=== PATIENT | male | born 1950 | race Caucasian/White ===

== ENCOUNTER 2017-06-01 22:26 | Inpatient (IN) | payer OTHER ==
[~2017-06-01] VITALS: Ht 180.3 cm; Wt 58.1 kg
--- NOTE | 2017-06-01 22:26 | NUR ---
PATIENT BIB BLS TO ER BED 11.
--- NOTE | 2017-06-01 22:28 | NUR ---
PATIENT IS A 66 Y/O MALE WHO PRESENTS TO THE ED C/O FEVER. PER [facility], "PT HAD FEVER AND WAS GIVEN NORCO." PT REPORTS 9/10 ACHING CHEST PAIN THAT DOES NOT RADIATE. PT DENIES N/V/D. NOTED G-TUBE. PT WARM TO TOUCH AND DIAPHORETIC. PT AAOX2, RR EVEN/UNLABORED, LUNG SOUNDS CLEAR BL. PT REPOSITIONED FOR COMFORT, BED IN LOWEST POSITION. ER MD DR. DEVLIN NOTIFIED. WILL CONTINUE TO MONITOR.
[2017-06-01 22:31] VITALS: BP 87/51
[2017-06-01] MEDS ORDERED: ACET-2858 PO (22:42)
[2017-06-01] MEDS ORDERED: METO-485 PO (22:42)
[2017-06-01] MEDS ORDERED: FAMO-90 PO (22:42)
[2017-06-01] MEDS ORDERED: OLAN15TA1 PO (22:42)
[2017-06-01] MEDS ORDERED: MEMA5TAB PO (22:42)
[2017-06-01] MEDS ORDERED: ASCO-770 PO (22:42)
[2017-06-01] MEDS ORDERED: INSU100S5 IJ (22:42)
[2017-06-01] MEDS ORDERED: NUTR-480 PO (22:42)
[2017-06-01] MEDS ORDERED: GABA100C PO (22:42)
[2017-06-01] MEDS ORDERED: ACETAMINOPHEN 650 MG SUPP RC ONE ×2 (22:49→23:05)
[2017-06-01] MEDS ORDERED: NACL 0.9% 1,000 ML IV ONE (23:00)
--- NOTE | 2017-06-01 23:20 | NUR ---
X-Ray at bedside.
[2017-06-01 23:47] LABS: HEMATOCRIT 31.9 % (36-52); HEMOGLOBIN 10.5 g/dL (12.0-18.0); MEAN CORPUSCULAR HEMOGLOBIN 29 pg (27-31); MEAN CORPUSCULAR HGB CONC 33 g/dL (33-37); MEAN CORPUSCULAR VOLUME 90 fL (80-94); PLATELET COUNT (AUTO) 363 K/uL (140-450); RED BLOOD CELL COUNT(AUTO) 3.56 MIL/uL (4.20-6.10)
[2017-06-01 23:57] LABS: APPEARANCE,URINE CLOUDY (CLEAR); BILIRUBIN,URINE NEGATIVE (NEGATIVE); BLOOD, URINE NEGATIVE (NEGATIVE); COLOR,URINE YELLOW (YELLOW); LEUKOCYTE ESTERASE ,URINE NEGATIVE (NEGATIVE); NITRITE, URINE NEGATIVE (NEGATIVE); UGLUCOSE NEGATIVE (NEGATIVE)
[2017-06-02] VITALS (9 sets, daily range): BP systolic 89–132; BP diastolic 47–75
--- NOTE | 2017-06-02 | NUR ---
PATIENT IS RESTING AT THIS TIME.
[2017-06-02 00:01] LABS: ALBUMIN 2.6 g/dL (3.4-5.0); ANION GAP 14.8 (8-16); CARBON DIOXIDE 29.1 mmol/L (21-32); CREATININE 1.1 mg/dL (0.7-1.3); POTASSIUM 3.9 mmol/L (3.5-5.1); TOTAL BILIRUBIN 0.2 mg/dL (0.0-1.0)
[2017-06-02 00:02] LABS: WHITE BLOOD COUNT (AUTO) 20.2 K/uL (4.8-10.8)
[2017-06-02 00:03] LABS: EOSINOPHILS % (MANUAL) 1 % (0-4); LYMPHOCYTES % (MANUAL) 0 % (20-46); MONOCYTES % (MANUAL) 3 % (5-12)
[2017-06-02] MEDS ORDERED: VANCOMYCIN 1,000 MG in DEXTROSE 5% 250 ML IV ONE (00:10)
[2017-06-02] MEDS ORDERED: PIPERACILLIN/TAZOBACTAM 3.375 GM in DEXTROSE 5% 50 ML IV ONE (00:10)
[2017-06-02] MEDS ORDERED: NACL 0.9% 1,000 ML IV ONE ×3 (00:10→02:20)
[2017-06-02] MEDS ORDERED: PIPERACILLIN/TAZOBACTAM 3.375 GM VIAL IV ONE ×2 (00:13→04:28)
[2017-06-02 00:17] LABS: PROTHROMBIN TIME 12.1 secs (10.8-13.4)
[2017-06-02 00:36] LABS: RBC,URINE 0-5 (RARE) /HPF (0-5); WBC,URINE 0-5 (RARE) /HPF (0-5)
[2017-06-02] MEDS ORDERED: VANCOMYCIN 1,000 MG VIAL ONE (01:29)
[2017-06-02] MEDS ORDERED: LEVOFLOXACIN 750 MG/D5W PREMIX 150 ML IV ONE (01:40)
[2017-06-02] MEDS ORDERED: NOREPINEPHRINE 4 MG in DEXTROSE 5% 250 ML IV ONE (02:30)
[2017-06-02] MEDS ORDERED: NOREPINEPHRINE 4 MG/4 ML VIAL IV ONE (02:33)
--- NOTE | 2017-06-02 02:45 | NUR ---
STARTED LEVOPHED 4MG/250 AT 5MCG. PER ER MD DR. DEVLIN, TITRATE UP UNTIL MAP GREATER THAN 65, THEN D/C.
[2017-06-02] MEDS ORDERED: VANCOMYCIN PER PHARMACY MC PRN (03:25)
[2017-06-02] MEDS ORDERED: NOREPINEPHRINE 8 MG in DEXTROSE 5% 250 ML IV PRN (03:25)
--- NOTE | 2017-06-02 03:30 | NUR ---
MAP AT 79. ER MD DR. DEVLIN MADE AWARE, OK TO D/C LEVOPHED.
--- NOTE | 2017-06-02 03:31 | NUR ---
Patient will be admitted to care of DR. MAY. Admited to ICU-3. Will go to room 3. Belongings list completed. Report to LUIS ANGEL FRAUSTO.
--- NOTE | 2017-06-02 03:35 | NUR ---
received pt from er via [facility].monitor attached.pt alert and oriented.st on monitor.on 02nc at 2LPM.no sob noted.oral care done.secretions suctioned.diminished breath sounds noted.with gtube clamped.flushed.pt verbalized able to void freely using urinal.pt able to move all extremities.skin intact.denies pain when asked.call light within reach.bed in low position.
[2017-06-02] MEDS: NACL 0.9% 1,000 ML IV SCH ×4 (03:51→15:53)
--- NOTE | 2017-06-02 05:01 | NUR ---
pt asleep at this time.easily arousable.still st on monitor.02sat 99% on 02nc at 2lpm.
--- NOTE | 2017-06-02 05:30 | NUR ---
BS CHECKED 91.
[2017-06-02] MEDS: PIPER/TAZO 3.375GM/D5W PREMIX 50 ML IV SCH ×3 (05:37→20:30)
[2017-06-02] MEDS: ALBUTEROL SULFATE/IPRATROPIU 3 ML SOL IH SCH ×5 (06:43→23:02)
[2017-06-02 06:51] LABS: HEMATOCRIT 31.1 % (36-52); HEMOGLOBIN 9.9 g/dL (12.0-18.0); MEAN CORPUSCULAR HEMOGLOBIN 29 pg (27-31); MEAN CORPUSCULAR HGB CONC 32 g/dL (33-37); MEAN CORPUSCULAR VOLUME 91 fL (80-94); PLATELET COUNT (AUTO) 361 K/uL (140-450); RED BLOOD CELL COUNT(AUTO) 3.42 MIL/uL (4.20-6.10); RED CELL DISTRIBUTION WIDTH 16.3 % (11.6-13.7); WHITE BLOOD COUNT (AUTO) 26.6 K/uL (4.8-10.8)
[2017-06-02 07:11] LABS: CARBON DIOXIDE 25.9 mmol/L (21-32); CREATININE 0.9 mg/dL (0.7-1.3); POTASSIUM 3.9 mmol/L (3.5-5.1)
--- NOTE | 2017-06-02 07:30 | NUR ---
RECEIVED REPORT FROM NOC SHIFT RN. PT RESTING IN BED, A/O X4. ABLE TO MAKE NEEDS KNOWN. PUPILS REACTIVE TO LIGHT. SKIN DRY AND WARM TO TOUCH. ON O2 AT 2 LTR/MIN VIA N/C. SPO2 94 %SR ON MONITOR. LUNGS SOUND DIMINISHED ON AUSCULTATION. PERIPHERAL LINE ON RIGHT HAND 22 G AND LEFT WRIST 20 G. INTACT. NS RUNNING AT 100 ML/HR. ABDOMEN SOFT, ROUND AND NON-TENDER. ACTIVE BOWEL SOUND ON ALL FOUR QUADRANTS. GTUBE ON LUQ. SKIN INTACT. PT AFEBRILE. KEPT HOB ELEVATED. BED IN LOW POSITION, LOCKED.
--- NOTE | 2017-06-02 07:57 | NUR ---
PT SLEEPING IN BED AT THIS TIME.
[2017-06-02 08:01] LABS: LYMPHOCYTES % (MANUAL) 3 % (20-46); MONOCYTES % (MANUAL) 5 % (5-12)
[2017-06-02] MEDS: PANTOPRAZOLE 40 MG INJ VIAL IVP SCH (08:53)
[2017-06-02] MEDS: ENOXAPARIN 40 MG/0.4 ML SYR SUBQ SCH (08:56)
--- NOTE | 2017-06-02 09:01 | NUR ---
PAGED DR. MAY TO UPDATE LAB RESULTS AND PT CONDITION. WAITING FOR CALL BACK.
--- NOTE | 2017-06-02 09:18 | NUR ---
PATIENT HAS BEEN SCREENED AND CATEGORIZED HIGH NUTRITION RISK. PATIENT WILL BE SEEN WITHIN 1-2 DAYS OF ADMISSION. 06/02/17-06/03/[address]
[2017-06-02] MEDS ORDERED: INSULIN LISPRO SLIDING SCALE 100 UNITS/ML VIAL SUBQ PRN (09:30)
[2017-06-02] MEDS ORDERED: DEXTROSE 50% 50 ML SYR IVP PRN (09:30)
--- NOTE | 2017-06-02 09:42 | NUR ---
PT SEEN BY DR. MAY. UPDATED PT CONDITION AND LABS. WILL FOLLOW UP ON ORDER.
--- NOTE | 2017-06-02 09:47 | NUR ---
PT SLEEPING AT THIS TIME. NO RESPIRATORY DISTRESS. NO CHANGE IN LOC. ST ON MONITOR. BP 93/54. AFEBRILE. WILL CONTINUE TO MONITOR.
[2017-06-02] MEDS: HYDROcodone/APAP 5/325 MG 1 TAB TAB PO PRN ×2 (10:50→20:30)
--- NOTE | 2017-06-02 11:04 | NUR ---
PAGED DR. HURLEY FOR CONSULTATION FOR SEPSIS WAITING FOR CALL BACK.
--- NOTE | 2017-06-02 11:30 | NUR ---
PT BP DROPPED DOWN TO 76/43. CALLED DR. MAY. LEFT VOICE MESSAGE. WAITING FOR CALL BACK.
--- NOTE | 2017-06-02 11:33 | NUR ---
BODY TEMPERATURE INCREASED TO 100.2 DEGREE F. EXTRA CLOTHES REMOVED. APPLIED ICE PACKS TO AXILLA. COLD COMPRESS DONE. CONTINUE TO MONITOR.
[2017-06-02] MEDS: BLOOD GLUCOSE MONITORING 1 DEV DEV FS SCH ×3 (11:59→20:41)
--- NOTE | 2017-06-02 12:02 | NUR ---
BODY TEMPERATURE REDUCED TO 98.4 DEGREE F.
--- NOTE | 2017-06-02 12:05 | NUR ---
BP 102/51. PT ON CONTINUOUS MONITORING.
[2017-06-02] MEDS: METOCLOPRAMIDE 10 MG/10 ML SYRP UDC PO SCH ×3 (12:21→20:29)
[2017-06-02] MEDS: GABAPENTIN 100 MG CAP PO SCH ×2 (12:21→17:28)
--- NOTE | 2017-06-02 13:00 | NUR ---
PAGED DR. MAY. AWAITING FOR CALL BACK.
--- NOTE | 2017-06-02 13:08 | NUR ---
CALLED DR. HURLEY. UPDATED PT CONDITION. WILL FOLLOW UP ON ORDER.
--- NOTE | 2017-06-02 13:45 | NUR ---
PT SEEN BY DR. LONGO. NOTIFIED PT FLUCTUATING BP AND FEVER. UPDATED PT CONDITION. WILL FOLLOW UP ON ORDER.
[2017-06-02] MEDS ORDERED: ACETAMINOPHEN 325 MG TAB PO PRN (13:50)
[2017-06-02] MEDS ORDERED: NACL 0.9% 2,000 ML IV SCH (13:55)
[2017-06-02] MEDS: VANCOMYCIN 500 MG in DEXTROSE 5% 100 ML IV SCH (14:08)
--- NOTE | 2017-06-02 15:01 | NUR ---
FAXED INITIAL REVIEW TO [facility] [phone] PHONE ZEB [phone]
--- NOTE | 2017-06-02 15:39 | NUR ---
PT SLEEPING IN BED AT THIS TIME. NO ACUTE RESPIRATORY DISTRESS NOTED. NO CHANGE IN LOC. WILL CONTINUE TO MONITOR.
[2017-06-02 15:57] LABS: HEMATOCRIT 31.2 % (36-52); MEAN CORPUSCULAR HEMOGLOBIN 29 pg (27-31); MEAN CORPUSCULAR HGB CONC 32 g/dL (33-37); MEAN CORPUSCULAR VOLUME 91 fL (80-94); PLATELET COUNT (AUTO) 308 K/uL (140-450); RED BLOOD CELL COUNT(AUTO) 3.43 MIL/uL (4.20-6.10); RED CELL DISTRIBUTION WIDTH 16.5 % (11.6-13.7); WHITE BLOOD COUNT (AUTO) 22.3 K/uL (4.8-10.8)
--- NOTE | 2017-06-02 16:15 | NUR ---
PAGED DR. MAY, AWAITING FOR CALL BACK.
--- NOTE | 2017-06-02 16:18 | NUR ---
RECEIVED CALL FROM DR. MAY. UPDATED PTS LAB RESULTS AND PT CONDITION. OKAY TO TRANSFER PT TO TELE.
--- NOTE | 2017-06-02 17:13 | NUR ---
PT SLEEPING IN BED AT THIS TIME. NO RESPIRATORY DISTRESS NOTED. NO CHANGE IN LOC. HR 101, BP 103/57, RR 15 SPO2 97. WILL CONTINUE TO MONITOR.
--- NOTE | 2017-06-02 17:40 | NUR ---
AT 1720. CHECKED RESIDUAL, WAS 110. HELD GTUBE FEEDING. KEPT HOB ELEVATED.
--- NOTE | 2017-06-02 18:05 | NUR ---
PT TRANSFERRED TO TELE UNIT 104B SAFELY WITH ALL THE BELONGINGS AND EYE GLASSES. PT ON STABLE CONDITION. REPORT GIVEN TO TELE NURSE.
--- NOTE | 2017-06-02 18:40 | NUR ---
PT ADMITTED TO [facility]. BEDSIDE REPORT GIVEN BY ICU NURSE. PT IS AWAKE AND ORIENTED X4. TELE MONITOR APPLIED. IV TO L AC 20G INTACT WITH NS @100ML/HR. G-TUBE PLACEMENT. ON O2 NC 2L/MIN. O2 SAT 98%. PT WITH PRODUCTIVE COUGH. SKIN INTACT. PT VOIDED USING URINAL. VS: BP 121/69, HR 109, RR 20, TEMP 98.7, O2 SAT 98%. NO SIGNS OF DISTRESS. BED IN LOW POSITION, WHEELS LOCKED, CALL LIGHT WITHIN REACH. WILL CONTINUE TO MONITOR.
[2017-06-02 19:02] LABS: LYMPHOCYTES % (MANUAL) 6 % (20-46); MONOCYTES % (MANUAL) 3 % (5-12)
--- NOTE | 2017-06-02 19:35 | NUR ---
ENDORSED PT TO CHILD GUIDANCE COUNSELOR NURSE YAYO AT BEDSIDE FOR CONTINUITY OF CARE. PT IN STABLE CONDITION.
--- NOTE | 2017-06-02 19:36 | NUR ---
RECEIVED REPORT FROM DAY SHIFT RN, PT IS A/OX4, ON 2L O2 VIA NASAL CANNULA. 20G IV TO LEFT HAND. IS ON BEDREST, WITH INTACT SKIN. PT HAS GTUBE IN PLACE. UPDATED BOARD. VITAL SIGNS WITHIN NORMAL LIMITS. PT IN STABLE CONDITION, NO SIGNS OF DISTRESS NOTED. BED IN LOWEST POSITION, CALL LIGHT WITHIN REACH. WILL CONTINUE TO MONITOR.
[2017-06-02] MEDS: OLANZapine 5 MG TAB PO SCH (20:29)
[2017-06-02] MEDS: LEVOFLOXACIN 750 MG/D5W PREMIX 150 ML IV SCH (20:30)
--- NOTE | 2017-06-02 20:40 | NUR ---
CHECKED G TUBE FOR RESIDUAL, NONE WAS PULLED. ADMINISTERED SCHEDULED MEDICATIONS AND NORCO FOR 9/10 PAIN AND FLUSHED G TUBE WITH ABOUT 40MLS OF WATER, PT TOLERATED WELL. PT IN STABLE CONDITION, NO SIGNS OF DISTRESS NOTED. BED IN LOWEST POSITION, CALL LIGHT WITHIN REACH. WILL CONTINUE TO MONITOR.
[2017-06-02] MEDS ORDERED: FAMOTIDINE 20 MG TAB PO SCH (21:00)
--- NOTE | 2017-06-02 21:45 | NUR ---
NO RESIDUAL FROM G TUBE. STARTED BOLUS FEEDING, PT TOLERATING WELL.
[2017-06-03] VITALS: BP 103/49
--- NOTE | 2017-06-03 00:30 | NUR ---
VITAL SIGNS WITHIN NORMAL LIMITS. PT IN STABLE CONDITION, NO SIGNS OF DISTRESS NOTED. BED IN LOWEST POSITION, CALL LIGHT WITHIN REACH. WILL CONTINUE TO MONITOR.
[2017-06-03] MEDS: VANCOMYCIN 500 MG in DEXTROSE 5% 100 ML IV SCH (01:29)
--- NOTE | 2017-06-03 01:55 | NUR ---
NO RESIDUAL FROM G TUBE. STARTED BOLUS FEEDING, PT TOLERATING WELL.
[2017-06-03] MEDS: HYDROcodone/APAP 5/325 MG 1 TAB TAB PO PRN ×4 (02:41→20:34)
--- NOTE | 2017-06-03 02:45 | NUR ---
ADMINISTERED NORCO FOR 9/10 PAIN, PT TOLERATED WELL. PT IN STABLE CONDITION, NO SIGNS OF DISTRESS NOTED. BED IN LOWEST POSITION, CALL LIGHT WITHIN REACH. WILL CONTINUE TO MONITOR.
[2017-06-03] MEDS: ALBUTEROL SULFATE/IPRATROPIU 3 ML SOL IH SCH ×4 (03:20→19:23)
[2017-06-03 04:00] VITALS: BP 97/52
--- NOTE | 2017-06-03 04:00 | NUR ---
VITAL SIGNS WITHIN NORMAL LIMITS. PT IN STABLE CONDITION, NO SIGNS OF DISTRESS NOTED. BED IN LOWEST POSITION, CALL LIGHT WITHIN REACH. WILL CONTINUE TO MONITOR.
[2017-06-03] MEDS: PIPER/TAZO 3.375GM/D5W PREMIX 50 ML IV SCH ×3 (05:41→20:42)
--- NOTE | 2017-06-03 06:00 | NUR ---
NO RESIDUAL FROM G TUBE. STARTED BOLUS FEEDING, PT TOLERATING WELL.
[2017-06-03] MEDS: BLOOD GLUCOSE MONITORING 1 DEV DEV FS SCH ×4 (06:35→20:46)
[2017-06-03 06:41] LABS: HEMATOCRIT 26.6 % (36-52); HEMOGLOBIN 8.4 g/dL (12.0-18.0); MEAN CORPUSCULAR HEMOGLOBIN 28 pg (27-31); MEAN CORPUSCULAR HGB CONC 31 g/dL (33-37); MEAN CORPUSCULAR VOLUME 90 fL (80-94); PLATELET COUNT (AUTO) 297 K/uL (140-450); RED BLOOD CELL COUNT(AUTO) 2.96 MIL/uL (4.20-6.10); RED CELL DISTRIBUTION WIDTH 16.2 % (11.6-13.7); WHITE BLOOD COUNT (AUTO) 17.2 K/uL (4.8-10.8)
[2017-06-03 07:08] LABS: ANION GAP 10.9 (8-16); CARBON DIOXIDE 25.4 mmol/L (21-32); CREATININE 0.7 mg/dL (0.7-1.3); POTASSIUM 3.3 mmol/L (3.5-5.1)
--- NOTE | 2017-06-03 07:30 | NUR ---
RECEIVED REPORT FROM AM NURSE AT BEDSIDE, PT IS AAOX4, ABLE TO FOLLOW COMMANDS AND MAKE NEEDS KNOW, C/O PAIN TO ABDOMEN, WILL MEDICATED LATER, VSS. NO S/S OF DISTRESS, CLEAR LUNG SOUNDS, ON RA, ST ON TELE MONITOR, SOFT ABDOMEN WITH ACTIVE BOWEL SOUNDS, GT IN PLACE, PATENT, WITH 0 RESIDUALS, CONTINENT WITH B&B'S, SKIN IS INTACT, WARM AND DRY TO TOUCH, GENERALIZED WEAKNESS NOTED. SAFETY MEASURES IN PLACE, CALL LIGHT WITHIN REACH. WILL CONTINUE TO MONITOR.
--- NOTE | 2017-06-03 07:32 | NUR ---
ENDORSED PT IN STABLE CONDITION TO DAY SHIFT NURSE FOR CONTINUITY OF CARE.
[2017-06-03 07:51] LABS: LYMPHOCYTES % (MANUAL) 2 % (20-46); MONOCYTES % (MANUAL) 3 % (5-12)
[2017-06-03 08:00] VITALS: BP 121/52
--- NOTE | 2017-06-03 08:45 | NUR ---
SCHEDULED MEDICATION GIVEN VIA GT, PT TOLERATED WELL. TUBE FEEDING WITH 200ML BOLUS.
[2017-06-03] MEDS: GABAPENTIN 100 MG CAP PO SCH ×3 (08:47→16:46)
[2017-06-03] MEDS: PANTOPRAZOLE 40 MG INJ VIAL IVP SCH (08:48)
[2017-06-03] MEDS: DOCUSATE 100 MG/10 ML UDC GT SCH (08:48)
[2017-06-03] MEDS: METOCLOPRAMIDE 10 MG/10 ML SYRP UDC PO SCH ×4 (08:48→20:33)
[2017-06-03] MEDS: MEMANTINE 10 MG TAB PO SCH (08:48)
[2017-06-03] MEDS: ENOXAPARIN 40 MG/0.4 ML SYR SUBQ SCH (08:50)
[2017-06-03] MEDS ORDERED: POTASSIUM CHLORIDE 20% 40 MEQ/15 ML UDC GT SCH (10:00)
[2017-06-03 12:00] VITALS: BP 112/56
--- NOTE | 2017-06-03 12:00 | NUR ---
PT IS LYING ON BED, NO S/S OF DISTRESS, STATED PAIN TO ABDOMEN 12/08, WILL MEDICATED AND EDUCATED.
--- NOTE | 2017-06-03 14:15 | NUR ---
06/03/2017 RD INITIAL ASSESSMENT COMPLETED PLEASE REFER TO NUTRITION ASSESSMENT UNDER CARE ACTIVITY FOR ESTIMATED NUTRITIONAL NEEDS. CURRENT DIET ORDER: DIABETISOURCE AC 100 ML Q4HR, PROSOURCE TID. THIS IS PROVIDING 900 KCAL AND 81 GM PRO A DAY TO MEET 52% EST KCAL AND 140% PRO NEEDS PER DAY-- INADEQUATE. RECOMMEDATION: DIABETISOURCE AC 240 ML Q4HR. THIS WILL PROVIDE 1728 KCAL AND 86 GM PRO PER DAY TO MEET 99% ESTIMATED KCAL AND 123% ESTIMATED PRO NEEDS PER DAY. RD TO FOLLOW-UP IN 2-3 DAYS PATIENT IS HIGH RISK. SUYAPA MCINTYRE RD
--- NOTE | 2017-06-03 15:15 | NUR ---
FAXED CONCURRENT REVIEW TO [facility] [phone] PHONE ZEB [phone]
[2017-06-03 16:00] VITALS: BP 86/48
[2017-06-03] MEDS: VANCOMYCIN 750 MG in DEXTROSE 5% 250 ML IV SCH (16:18)
--- NOTE | 2017-06-03 19:08 | NUR ---
REPORT GIVEN TO PHYSICAL TRAINER NURSE AT BEDSIDE FOR CONTINUE OF CARE, PT IS IN STABLE CONDITION AT THIS TIME.
--- NOTE | 2017-06-03 19:10 | NUR ---
RECEIVED REPORT FROM DAY SHIFT RN, PT IS A/OX4, ON 2L O2 VIA NASAL CANNULA. 20G IV TO LEFT HAND. IS ON BEDREST, WITH INTACT SKIN. PT HAS GTUBE IN PLACE. UPDATED BOARD. DISCUSSED PLAN OF CARE WITH PT, PT VERBALIZED UNDERSTANDING. VITAL SIGNS WITHIN NORMAL LIMITS. PT IN STABLE CONDITION, NO SIGNS OF DISTRESS NOTED. BED IN LOWEST POSITION, CALL LIGHT WITHIN REACH. WILL CONTINUE TO MONITOR.
[2017-06-03] MEDS: NACL 0.9% 1,000 ML IV SCH (19:25)
[2017-06-03 20:00] VITALS: BP 117/66
[2017-06-03] MEDS: OLANZapine 5 MG TAB PO SCH (20:34)
[2017-06-03] MEDS: LEVOFLOXACIN 750 MG/D5W PREMIX 150 ML IV SCH (20:42)
--- NOTE | 2017-06-03 20:45 | NUR ---
ADMINISTERED SCHEDULED MEDICATIONS AND FLUSHED WITH 30ML OF WATER AFTER GTUBE MEDS, PT TOLERATED WELL. BLOOD SUGAR 93, SO NO INSULIN COVERAGE NEEDED. PT IN STABLE CONDITION, NO SIGNS OF DISTRESS NOTED. BED IN LOWEST POSITION, CALL LIGHT WITHIN REACH. WILL CONTINUE TO MONITOR.
--- NOTE | 2017-06-03 22:00 | NUR ---
NO RESIDUAL FROM G TUBE, BOLUS TUBE FEEDING WITH WATER FLUSH STARTED. PT SITTING AT MORE THAN 30 DEGREE ANGLE, PT TOLERATING WELL.
[2017-06-04] VITALS: BP 114/66
--- NOTE | 2017-06-04 | NUR ---
VITAL SIGNS WITHIN NORMAL LIMITS. PT IN STABLE CONDITION, NO SIGNS OF DISTRESS NOTED. BED IN LOWEST POSITION, CALL LIGHT WITHIN REACH. WILL CONTINUE TO MONITOR.
[2017-06-04] MEDS: ALBUTEROL SULFATE/IPRATROPIU 3 ML SOL IH SCH ×2 (01:00→07:29)
--- NOTE | 2017-06-04 01:45 | NUR ---
PT WANTS TO SLEEP, HE WAS VOMITING BEFORE TOO, REFUSED HHN TX
[2017-06-04] MEDS: HYDROcodone/APAP 5/325 MG 1 TAB TAB PO PRN ×4 (02:24→23:49)
[2017-06-04 04:00] VITALS: BP 117/67
--- NOTE | 2017-06-04 04:00 | NUR ---
VITAL SIGNS WITHIN NORMAL LIMITS. PT IN STABLE CONDITION, NO SIGNS OF DISTRESS NOTED. BED IN LOWEST POSITION, CALL LIGHT WITHIN REACH. WILL CONTINUE TO MONITOR.
[2017-06-04] MEDS: VANCOMYCIN 750 MG in DEXTROSE 5% 250 ML IV SCH ×2 (04:35→16:43)
[2017-06-04] MEDS: NACL 0.9% 1,000 ML IV SCH ×2 (05:25→16:42)
[2017-06-04] MEDS: PIPER/TAZO 3.375GM/D5W PREMIX 50 ML IV SCH ×3 (05:26→21:47)
[2017-06-04] MEDS: BLOOD GLUCOSE MONITORING 1 DEV DEV FS SCH ×4 (06:38→20:29)
[2017-06-04 07:06] LABS: BASOPHILS # (AUTO) 0.1 K/uL (0.00-0.22); BASOPHILS % (AUTO) 0.4 % (0.0-2.0); EOSINOPHILS # (AUTO) 0.1 K/uL (0-0.4); EOSINOPHILS % (AUTO) 0.7 % (0.0-4.0); HEMATOCRIT 30.1 % (36-52); LYMPHOCYTES # (AUTO) 0.9 K/uL (2.0-11.5); LYMPHOCYTES % (AUTO) 5.9 % (20.5-51.1); MEAN CORPUSCULAR HEMOGLOBIN 30 pg (27-31); MEAN CORPUSCULAR HGB CONC 33 g/dL (33-37); MEAN CORPUSCULAR VOLUME 90 fL (80-94); MONOCYTES # (AUTO) 1.2 K/uL (0.8-1.0); MONOCYTES % (AUTO) 8.3 % (1.7-9.3); NEUTROPHILS # (AUTO) 12.7 K/uL (1.8-7.7); NEUTROPHILS % (AUTO) 84.7 % (42.2-75.2); PLATELET COUNT (AUTO) 294 K/uL (140-450); RED BLOOD CELL COUNT(AUTO) 3.35 MIL/uL (4.20-6.10); RED CELL DISTRIBUTION WIDTH 16.2 % (11.6-13.7)
[2017-06-04 07:18] LABS: ANION GAP 12.7 (8-16); CREATININE 0.8 mg/dL (0.7-1.3); POTASSIUM 3.7 mmol/L (3.5-5.1)
--- NOTE | 2017-06-04 07:29 | NUR ---
AWAKE AND ALERT SATURATION 84% ON ROOM AIR POST HHN THERAPY PLACED ON SUPPLEMENTAL OXYGEN AT 2 LPM VIA ID BRIELLE/RN NOTIFIED
--- NOTE | 2017-06-04 07:37 | NUR ---
ENDORSED PT IN STABLE CONDITION TO DAY SHIFT NURSE FOR CONTINUITY OF CARE.
--- NOTE | 2017-06-04 07:45 | NUR ---
ENDORSEMENT RECEIVED FROM INSIDE SALES LEAD. PATIENT IS AWAKE, ALERT. RESPIRATION EVEN, UNLABOR ON 2L NC. SKIN DRY AND WARM. IV PATENT AND INTACT. GTUBE IS IN PLACE. COMPLAINED OF PAIN 12/08 ABDOMEN RADIATE TO CHEST, WILL MEDICATE PER ORDER. PLAN OF CARE WAS DISCUSSED WITH THE PATIENT. SIDE RAILS UP. CALL LIGHT WITHIN REACH. Addendum: 06/04/17 at 0952 by Stacey Montes RN GTUBE RESIDUAL 10ML
[2017-06-04 08:00] VITALS: BP 90/53
[2017-06-04] MEDS: ENOXAPARIN 40 MG/0.4 ML SYR SUBQ SCH (08:53)
[2017-06-04] MEDS: DOCUSATE 100 MG/10 ML UDC GT SCH (08:55)
[2017-06-04] MEDS: PANTOPRAZOLE 40 MG INJ VIAL IVP SCH (08:55)
[2017-06-04] MEDS: MEMANTINE 10 MG TAB PO SCH (08:56)
[2017-06-04] MEDS: GABAPENTIN 100 MG CAP PO SCH ×3 (08:56→17:44)
[2017-06-04] MEDS: METOCLOPRAMIDE 10 MG/10 ML SYRP UDC PO SCH ×4 (08:57→20:30)
--- NOTE | 2017-06-04 11:00 | NUR ---
RESIDUAL WAS CHECKED, 5ML. TUBE FEEDING WAS STARTED AT 1100.
--- NOTE | 2017-06-04 11:01 | NUR ---
IV WAS REMOVED FROM LEFT THUMB, CATHETER INTACT, BLEEDING WAS CONTROLLED, PATIENT TOLERATED WELL
[2017-06-04 12:00] VITALS: BP 90/49
--- NOTE | 2017-06-04 12:00 | NUR ---
TUBE FEEDING IS DONE. PATIENT DENIED N/V, OR PAIN. PATIENT TOLERATED FEEDING WELL
--- NOTE | 2017-06-04 13:00 | NUR ---
PATIENT IS SLEEPING COMFORTABLY. RESPIRATION EVEN, UNLABOR ON 2L NC. NO DISTRESS NOTED AT THIS TIME. CALL LIGHT WITHIN REACH
--- NOTE | 2017-06-04 13:15 | NUR ---
CM NOTE CONCURRENT REVIEW FAXED TO [facility] / FAX# [phone], ATTN: ZEB #[phone]
--- NOTE | 2017-06-04 13:35 | NUR ---
FREQUENCY CHANGED TO Q8PRN FOR SON LOC AWAKE AND ALERT NO EVIDENCE OF PULMONARY DISTRESS NOTED SATURATION 94% ON SUPPLEMENTAL OXYGEN AT 2 LPM VIA NC HR 117 RR 20 RN HEMODIALYSIS TO MONITOR
--- NOTE | 2017-06-04 15:15 | NUR ---
GTUBE FEEDING WAS STARTED. PATIENT IS SLEEPING COMFORTABLY. NO DISTRESS NOTED. TWISTING FRAME OPERATOR WAS AT BEDSIDE
[2017-06-04 16:00] VITALS: BP 100/53
--- NOTE | 2017-06-04 16:20 | NUR ---
TUBE FEEDING WAS STOPPED, RESIDUAL 60ML. PATIENT TOLERATED WELL
[2017-06-04] MEDS ORDERED: VANCOMYCIN 1GM/DEXT 5% PREMIX 200 ML IV SCH (17:00)
--- NOTE | 2017-06-04 19:26 | NUR ---
TUBE FEEDING WAS STARTED @ 1920.
--- NOTE | 2017-06-04 19:32 | NUR ---
ENDORSEMENT GIVEN TO THE HOME SUPERVISOR NURSE. PATIENT IS STABLE AT THIS TIME
--- NOTE | 2017-06-04 19:33 | NUR ---
PATIENT REPORT RECEIVED FROM MORNING NURSE AT BEDSIDE. PATIENT IS ASLEEP, BUT EASY TO AROUSE. NO SIGNS AND SYMPTOMS OF DISTRESS NOTED. BREATHING EVEN AND UNLABORED. PATIENT IS ON O2 2L VIA NC. IV SITE NOTED ON RIGHT ARM, IVF INFUSING WELL. G TUBE NOTED ON UPPER ABDOMEN, TUBE FEEDING ONGOING AT 200ML BOLUS. WILL STOP THE FEEDING AT 2019. BED IN LOWEST POSITION, SIDE RAILS UP AND CALL LIGHT WITHIN REACH. WILL CONTINUE TO MONITOR.
[2017-06-04 20:00] VITALS: BP 107/60
--- NOTE | 2017-06-04 20:20 | NUR ---
TUBE FEEDING STOPPED. 40 ML RESIDUAL NOTED. WILL CONTINUE TO MONITOR.
[2017-06-04] MEDS: OLANZapine 5 MG TAB PO SCH (20:30)
[2017-06-04] MEDS: LEVOFLOXACIN 750 MG/D5W PREMIX 150 ML IV SCH (21:47)
--- NOTE | 2017-06-04 22:00 | NUR ---
CHECKED ON PATIENT. PATIENT IS ASLEEP. NO SIGNS AND SYMPTOMS OF DISTRESS NOTED. BREATHING EVEN AND UNLABORED. SAFETY PRECAUTIONS IN PLACE, WILL CONTINUE TO MONITOR.
[2017-06-05] VITALS: BP 106/59
--- NOTE | 2017-06-05 00:20 | NUR ---
TUBE FEEDING BOLUS STARTED, TO RUN AT 200ML FOR 1 HR. GTUBE RESIDUAL, 30 ML NOTED.
[2017-06-05] MEDS: NACL 0.9% 1,000 ML IV SCH ×3 (01:25→21:25)
--- NOTE | 2017-06-05 02:09 | NUR ---
CHECKED ON PATIENT. PATIENT IS ASLEEP. NO SIGNS AND SYMPTOMS OF DISTRESS NOTED. BREATHING EVEN AND UNLABORED. SAFETY PRECAUTIONS IN PLACE, WILL CONTINUE TO MONITOR.
[2017-06-05 04:00] VITALS: BP 101/62
[2017-06-05] MEDS ORDERED: VANCOMYCIN 1GM/DEXT 5% PREMIX 200 ML IV SCH (04:00)
--- NOTE | 2017-06-05 04:30 | NUR ---
TUBE FEEDING BOLUS STARTED, TO RUN AT 200ML FOR 1 HR. GTUBE RESIDUAL, 20 ML NOTED. WILL CONTINUE TO MONITOR.
[2017-06-05] MEDS: PIPER/TAZO 3.375GM/D5W PREMIX 50 ML IV SCH ×2 (05:01→13:28)
[2017-06-05] MEDS ORDERED: HYDROcodone/APAP 5/325 MG 1 TAB TAB ONE (06:02)
[2017-06-05] MEDS: HYDROcodone/APAP 5/325 MG 1 TAB TAB PO PRN ×3 (06:21→23:17)
[2017-06-05] MEDS: BLOOD GLUCOSE MONITORING 1 DEV DEV FS SCH ×4 (06:32→20:35)
[2017-06-05 06:54] LABS: BASOPHILS # (AUTO) 0.1 K/uL (0.00-0.22); BASOPHILS % (AUTO) 0.5 % (0.0-2.0); EOSINOPHILS # (AUTO) 0.1 K/uL (0-0.4); EOSINOPHILS % (AUTO) 1.2 % (0.0-4.0); HEMATOCRIT 27.9 % (36-52); LYMPHOCYTES # (AUTO) 0.6 K/uL (2.0-11.5); LYMPHOCYTES % (AUTO) 6.1 % (20.5-51.1); MEAN CORPUSCULAR HEMOGLOBIN 29 pg (27-31); MEAN CORPUSCULAR HGB CONC 32 g/dL (33-37); MEAN CORPUSCULAR VOLUME 89 fL (80-94); MONOCYTES % (AUTO) 9.7 % (1.7-9.3); NEUTROPHILS # (AUTO) 8.5 K/uL (1.8-7.7); NEUTROPHILS % (AUTO) 82.5 % (42.2-75.2); PLATELET COUNT (AUTO) 311 K/uL (140-450); RED BLOOD CELL COUNT(AUTO) 3.14 MIL/uL (4.20-6.10); RED CELL DISTRIBUTION WIDTH 15.9 % (11.6-13.7); WHITE BLOOD COUNT (AUTO) 10.3 K/uL (4.8-10.8)
[2017-06-05] MEDS ORDERED: ALBUTEROL SULFATE/IPRATROPIU 3 ML SOL IH PRN (07:00)
[2017-06-05 07:14] LABS: ANION GAP 11.5 (8-16); CARBON DIOXIDE 27.3 mmol/L (21-32); CREATININE 0.8 mg/dL (0.7-1.3); POTASSIUM 3.8 mmol/L (3.5-5.1)
--- NOTE | 2017-06-05 07:25 | NUR ---
PATIENT REPORT GIVEN TO MORNING NURSE AT BEDSIDE FOR CONTINUITY OF CARE. PATIENT IS IN STABLE CONDITION
--- NOTE | 2017-06-05 07:30 | NUR ---
ENDORSEMENT RECEIVED FROM WEATHER ALGORITHM SCIENTIST NURSE. PATIENT IS SLEEPING COMFORTABLY. RESPIRATION EVEN, UNLABOR ON ROOM AIR. SKIN DRY AND WARM. IV PATENT AND INTACT. GTUBE IS IN PLACE, AND DRY. NO DISTRESS NOTED AT THIS TIME. BED AT LOW POSITION, SIDE RAILS UP. CALL LIGHT WITHIN REACH.
[2017-06-05 08:00] VITALS: BP 101/54
[2017-06-05] MEDS: METOCLOPRAMIDE 10 MG/10 ML SYRP UDC PO SCH ×4 (09:38→20:37)
[2017-06-05] MEDS: GABAPENTIN 100 MG CAP PO SCH ×3 (09:38→17:09)
[2017-06-05] MEDS: PANTOPRAZOLE 40 MG INJ VIAL IVP SCH (09:38)
[2017-06-05] MEDS: MEMANTINE 10 MG TAB PO SCH (09:39)
[2017-06-05] MEDS: DOCUSATE 100 MG/10 ML UDC GT SCH (09:40)
[2017-06-05] MEDS ORDERED: guaiFENesin DM 200/20 MG-10 ML 10 ML UDC PO PRN (09:50)
[2017-06-05] MEDS: ENOXAPARIN 40 MG/0.4 ML SYR SUBQ SCH (09:52)
[2017-06-05 10:19] LABS: FREE T4 (FREE THYROXINE) 1.19 ng/dL (0.76-1.46); THYROID STIMULATING HORMONE 1.21 uIU/mL (0.34-3.74)
--- NOTE | 2017-06-05 10:30 | NUR ---
RESIDUAL WAS CHECKED, 5ML. GTUBE FEEDING WAS STARTED. Addendum: 06/05/17 at 1439 by Stacey Montes RN IV WAS REMOVED FROM RIGHT FOREARM, CATHETER INTACT, NO ACTIVE BLEEDING SEEN. PATIENT TOLERATED WELL
--- NOTE | 2017-06-05 11:22 | NUR ---
ATTEMPTED TO PERFORM IS WITH PATIENT BUT PATIENT IS NOT AWAKE ENOUGH TO PERFORM. WILL FOLLOW UP AT A LATER TIME WHEN PATIENT IS AWAKE
--- NOTE | 2017-06-05 11:45 | NUR ---
GTUBE FEEDING WAS STOPPED. PATIENT DENIED N/V, OR ABDOMINAL PAIN. PATIENT TOLERATED WELL
[2017-06-05 12:00] VITALS: BP 113/55
--- NOTE | 2017-06-05 12:00 | NUR ---
PATIENT IS SLEEPING COMFORTABLY. RESPIRATION EVEN, UNLABOR ON ROOM AIR. VS WAS TAKEN. NO DISTRESS NOTED AT THIS TIME. MED WAS GIVEN. CALL LIGHT WITHIN REACH
--- NOTE | 2017-06-05 14:50 | NUR ---
RESIDUAL WAS CHECKED, 5ML REMAINED. GTUBE FEEDING WAS STARTED.
--- NOTE | 2017-06-05 15:00 | NUR ---
FEEDING WAS STOPPED. PATIENT DENIED N/V, OR ABDOMINAL PAIN. PATIENT TOLERATED WELL
--- NOTE | 2017-06-05 15:28 | NUR ---
CM NOTE CONCURRENT REVIEW FAXED TO [facility] / FAX# [phone], ATTN: ZEB #[phone]
[2017-06-05 15:39] VITALS: BP 119/73
[2017-06-05] MEDS: VANCOMYCIN 1,250 MG in DEXTROSE 5% 250 ML IV SCH (17:09)
--- NOTE | 2017-06-05 18:20 | NUR ---
RESIDUAL WAS CHECKED, 10ML. GTUBE FEEDING WAS STARTED
--- NOTE | 2017-06-05 19:20 | NUR ---
G TUBE FEEDING ENDED.
--- NOTE | 2017-06-05 19:25 | NUR ---
ENDORSEMENT GIVEN TO THE BLAST FURNACE BLOWER NURSE. PATIENT IS STABLE AT THIS TIME.
--- NOTE | 2017-06-05 19:26 | NUR ---
PATIENT REPORT RECEIVED FROM MORNING NURSE AT BEDSIDE. PATIENT IS ASLEEP, BUT EASY TO AROUSE. NO SIGNS AND SYMPTOMS OF DISTRESS NOTED. BREATHING EVEN AND UNLABORED. PATIENT IS ON ROOM AIR. IV SITE NOTED ON RIGHT ARM, IVF INFUSING WELL. G TUBE NOTED ON UPPER ABDOMEN. BED IN LOWEST POSITION, SIDE RAILS UP AND CALL LIGHT WITHIN REACH. WILL CONTINUE TO MONITOR.
[2017-06-05 20:00] VITALS: BP 106/70
[2017-06-05] MEDS: LEVOFLOXACIN 750 MG/D5W PREMIX 150 ML IV SCH (20:36)
[2017-06-05] MEDS: OLANZapine 5 MG TAB PO SCH (20:37)
[2017-06-05] MEDS: CARVEDILOL 3.125 MG TAB PO SCH (21:00)
--- NOTE | 2017-06-05 22:30 | NUR ---
ZOSYN ORDER CHANGED BY DR HURLEY, HELD 2100 DOSE
--- NOTE | 2017-06-05 23:15 | NUR ---
TUBE FEEDING BOLUS STARTED, TO RUN AT 200ML FOR 1 HR. GTUBE RESIDUAL, 20 ML NOTED.
--- NOTE | 2017-06-05 23:30 | NUR ---
DISCHARGE INSTRUCTIONS GIVEN TO PATIENT. PATIENT VERBALIZED UNDERSTANDING AND SIGNED ALL DISCHARGE PAPERWORK. ID BANDS REMOVED. PATIENT CHANGED TO ORANGE GOWN. TELE LEADS REMOVED. Addendum: 06/07/17 at 0023 by Florencia Montana RN WRONG TIME/DATE
[2017-06-06] VITALS: BP 109/67
--- NOTE | 2017-06-06 00:15 | NUR ---
GTUBE FEEDING ENDED. PATIENT TOLERATED WELL
--- NOTE | 2017-06-06 03:15 | NUR ---
TUBE FEEDING BOLUS STARTED, TO RUN AT 200ML FOR 1 HR. GTUBE RESIDUAL, 10 ML NOTED.
[2017-06-06 04:00] VITALS: BP 106/59
[2017-06-06] MEDS ORDERED: PIPER/TAZO 3.375GM/D5W PREMIX 50 ML IV SCH (05:00)
[2017-06-06] MEDS: VANCOMYCIN 1,250 MG in DEXTROSE 5% 250 ML IV SCH (05:21)
[2017-06-06] MEDS: HYDROcodone/APAP 5/325 MG 1 TAB TAB PO PRN ×4 (05:21→23:31)
[2017-06-06] MEDS: BLOOD GLUCOSE MONITORING 1 DEV DEV FS SCH ×4 (06:34→20:17)
[2017-06-06] MEDS: NACL 0.9% 1,000 ML IV SCH ×2 (06:34→17:31)
[2017-06-06 07:10] LABS: ANION GAP 14.1 (8-16); CREATININE 0.7 mg/dL (0.7-1.3); POTASSIUM 4.1 mmol/L (3.5-5.1)
--- NOTE | 2017-06-06 07:30 | NUR ---
TUBE FEEDING BOLUS STARTED, TO RUN AT 200ML FOR 1 HR. GTUBE RESIDUAL, 20 ML NOTED.
--- NOTE | 2017-06-06 07:30 | NUR ---
PATIENT REPORT GIVEN TO MORNING NURSE AT BEDSIDE FOR CONTINUITY OF CARE. PATIENT IS IN STABLE CONDITION.
[2017-06-06 08:00] VITALS: BP 107/63
--- NOTE | 2017-06-06 08:00 | NUR ---
Patient's Plan of Care was discussed and reviewed with REALTIME REPORTER: KIRIT NEVAREZ (REGISTRY)
[2017-06-06] MEDS: CARVEDILOL 3.125 MG TAB PO SCH ×2 (08:47→20:56)
[2017-06-06] MEDS: GABAPENTIN 100 MG CAP PO SCH ×3 (08:47→17:30)
[2017-06-06] MEDS: MEMANTINE 10 MG TAB PO SCH (08:48)
[2017-06-06] MEDS: METOCLOPRAMIDE 10 MG/10 ML SYRP UDC PO SCH ×4 (08:48→20:56)
[2017-06-06] MEDS: DOCUSATE 100 MG/10 ML UDC GT SCH (08:48)
[2017-06-06] MEDS ORDERED: CARV3.122 PO (09:28)
[2017-06-06] MEDS ORDERED: DEXT5SYR3 PO (09:28)
[2017-06-06] MEDS ORDERED: Vancomycin Per Pharmacy MC (09:28)
[2017-06-06] MEDS: PANTOPRAZOLE 40 MG INJ VIAL IVP SCH (10:04)
[2017-06-06] MEDS: ENOXAPARIN 40 MG/0.4 ML SYR SUBQ SCH (10:07)
[2017-06-06 12:00] VITALS: BP 98/59
--- NOTE | 2017-06-06 12:01 | NUR ---
WHEN THE [place] [facility] [place] AUTH FOR [place]SPORT [facility] IS [id number].
--- NOTE | 2017-06-06 13:50 | NUR ---
06/06/17 RD FOLLOW UP COMPLETED. PLEASE REFER TO NUTRITION ASSESSMENT UNDER CARE ACTIVITY FOR ESTIMATED NUTRITIONAL NEEDS. CURRENT NUTRITION SUPPORT ORDER: DIABETISOURCE AC: 200 ML Q4H THIS IS PROVIDING 1440 KCAL AND 72 GM PRO/DAY, TO MEET 83% EST KCAL AND 103%EST PRO NEEDS PER DAY ADEQUATE, NO ADDITIONAL NUTRITION SUPPORT CHANGES RECOMMENDED CONTINUE ANTIHYPERGLYCEMIC MEDS AND DIABETIC APPROPRIATE TUBE FEEDING FORMULA FOR GLUCOSE CONTROL RD TO FOLLOW-UP IN 2-3 DAYS PATIENT IS HIGH RISK. SUYAPA MCINTYRE, RD
--- NOTE | 2017-06-06 15:15 | NUR ---
PHYSICAL THERAPY CO-SIGN The Physical Therapy Progress Notes documented by Senior Mechanical Engineer have been reviewed. I concur with the documentation of this CHIPS SCREEN TENDER. Plan: continue PT as per plan of care if he remains in this hospital as he made some good progress with PT today with increased gait distance made. Reviewed/Co-Signed by: Milagros Ascencio, PT Documentation Done by: Arturo Flowers, CHIPS SCREEN TENDER Addendum: 06/06/17 at 1531 by Milagros Ascencio PT Amended: Links added.
[2017-06-06 16:00] VITALS: BP 100/59
--- NOTE | 2017-06-06 17:48 | NUR ---
SAW ORDER FOR [place] [facility] SPOKE WITH SONIA FRAUSTOMANAGER OB NURSE WHO SPOKE WITH DAPHNE AT [facility]. THE PATIENT CAN GO TO ROOM 19C UNDER DR. BOND. I CALLED DAPHNE AND SHE SAID TO FAX THE H&P AND MED SHEETS TO HER. I CALLED SONIA FRAUSTO AND SHE WILL FAX THE INFORMATION. THE AUTH FOR TRANSPORT FROM [facility] [id number]. SONIA FRAUSTO WILL ARRANGE TRANSPORT.
--- NOTE | 2017-06-06 18:01 | NUR ---
CALLED [facility] AND ARRANGED TRANSPORT THE EARLIEST TIME FOR ADJUSTER PIANO ACTION IS 1030 PM
--- NOTE | 2017-06-06 19:25 | NUR ---
PATIENT REPORT RECEIVED FROM MORNING NURSE AT BEDSIDE. PATIENT IS RESTING COMFORTABLY IN BED, ASLEEP, BUT EASY TO AROUSE. NO SIGNS AND SYMPTOMS OF DISTRESS NOTED. BREATHING EVEN AND UNLABORED. PATIENT IS ON ROOM AIR. IV SITE NOTED ON RIGHT ARM, IVF INFUSING WELL. G TUBE NOTED ON UPPER ABDOMEN. BED IN LOWEST POSITION, SIDE RAILS UP AND CALL LIGHT WITHIN REACH. WILL CONTINUE TO MONITOR
[2017-06-06 20:00] VITALS: BP 115/68
[2017-06-06] MEDS: OLANZapine 5 MG TAB PO SCH (20:56)
--- NOTE | 2017-06-06 21:15 | NUR ---
TUBE FEEDING BOLUS STARTED, TO RUN AT 200ML FOR 1 HR. NO RESIDUAL NOTED
--- NOTE | 2017-06-06 22:15 | NUR ---
TUBE FEEDING BOLUS ENDED. PATIENT TOLERATED WELL.
--- NOTE | 2017-06-06 22:30 | NUR ---
PATIENT'S IV SITE INFILTRATED. IV DISCONTINUED, IV CANNULA INTACT. SEVERAL ATTEMPTS MADE BY THE CHARGE NURSE AND I. NEW IV SITE INSERTED IN LEFT FOREARM 24 GAUGE. PATIENT TOLERATED WELL. WILL CONTINUE TO MONITOR.
[2017-06-06] MEDS ORDERED: VANCOMYCIN 1,000 MG in DEXTROSE 5% 250 ML IV SCH (23:00)
--- NOTE | 2017-06-06 23:40 | NUR ---
DISCHARGE INSTRUCTIONS GIVEN TO PATIENT. PATIENT VERBALIZED UNDERSTANDING AND SIGNED ALL DISCHARGE PAPERWORK. ID BANDS REMOVED. PATIENT CHANGED TO ORANGE GOWN. TELE LEADS REMOVED.
--- NOTE | 2017-06-06 23:55 | NUR ---
PATIENT PICKED UP BY [facility], TO TRANSPORT PATIENT TO [facility] FOR CONTINUITY OF CARE. REPORT AND DISCHARGE PAPERWORK GIVEN TO TRANSPORTER. PATIENT LEFT WITH ALL HIS BELONGINGS. PATIENT IS IN STABLE CONDITION.
== END 2017-06-06 23:55 | DRG 720 ==
LOC: MED 22:26 → MIC 06-02 03:11 → MTU 06-02 19:38
PROVIDERS: ADMIT Hospitalist; ATTEND Hospitalist
DX: A41.9 Sepsis, unspecified organism (principal); J96.20 Acute and chronic respiratory failure, unspecified whether with hypoxia or hypercapnia; R65.21 Severe sepsis with septic shock; E44.0 Moderate protein-calorie malnutrition; J18.9 Pneumonia, unspecified organism; I24.9 Acute ischemic heart disease, unspecified; K31.84 Gastroparesis; E11.43 Type 2 diabetes mellitus with diabetic autonomic (poly)neuropathy; J44.0 Chronic obstructive pulmonary disease with (acute) lower respiratory infection; K22.2 Esophageal obstruction; Z93.1 Gastrostomy status; F31.9 Bipolar disorder, unspecified; F29 Unspecified psychosis not due to a substance or known physiological condition; B95.2 Enterococcus as the cause of diseases classified elsewhere; I25.10 Atherosclerotic heart disease of native coronary artery without angina pectoris; D63.8 Anemia in other chronic diseases classified elsewhere; I10 Essential (primary) hypertension; K21.9 Gastro-esophageal reflux disease without esophagitis; N39.0 Urinary tract infection, site not specified; Z85.46 Personal history of malignant neoplasm of prostate; Z87.891 Personal history of nicotine dependence; Z88.2 Allergy status to sulfonamides; Z92.3 Personal history of irradiation; Z88.5 Allergy status to narcotic agent
CPT/HCPCS: 36415; 71045; 80048; 80053; 80202; 81001; 82550; 82553; 82948; 83605; 83874; 83880; 84439; 84443; 84484; 85025; 85610; 85730; 87040; 87081; 87086; 87186; 93005; 94640; 96361; 96365; 96366; 96367; 96368; 96375; 97110; 97116; 97140; 97530; 99285; C9113; J1650; J1815; J1956; J2543; J3370; J3490; J7030; J7060; J7620; J8597; Q0092

== ENCOUNTER 2019-04-23 22:22 | Inpatient (IN) | payer OTHER, MEDICARE ==
[~2019-04-23] VITALS: Ht 180.3 cm; Wt 81.6 kg
[2019-04-23 22:22] VITALS: BP 115/69
[~2019-04-23 22:22] MED LIST: ASCO-770 PO; CARV3.122 PO; DEXT5SYR3 PO; FAMO-90 PO; GABA100C PO; HYDR-5092 PO; INSU100S5 IJ; MEMA5TAB PO; METO-485 PO; NUTR-480 PO; OLAN15TA1 PO; Vancomycin Per Pharmacy MC
--- NOTE | 2019-04-23 22:22 | NUR ---
PT TRANSFERED FROM [facility] TO BED 3.
--- NOTE | 2019-04-23 23:00 | NUR ---
pt IN BED, ONLY THING PT STATED WAS THAT HE NEEDS HIS PAIN MEDS. PT BIBA FROM [facility], C/O CP X1 WEEK, RECENT DIAGNOSIS OF PNUEOMONIA. SHALLOW BREATHING W/ ACCESSORY MUSCLE USE, TACYPNEA AT 30 PER MIN. PT FEELS CLAMMY, CURRENT TEMP 100.6, PT TACHYCARDIC AT 140. DR VIEIRA NOTIFIED OF PT CONDITION. 22G IV STARTED IN LT UPPER ARM, LABS OBTAINED AND SENT TO LAB.
[2019-04-23] MEDS ORDERED: SODIUM CHLORIDE FLUSH 10 ML SYR IVF STA (23:45)
[2019-04-24 00:39] LABS: BASOPHILS # (AUTO) 0.1 K/uL (0.00-0.22); BASOPHILS % (AUTO) 0.4 % (0.0-2.0); HEMATOCRIT 42.2 % (36-52); HEMOGLOBIN 13.9 g/dL (12.0-18.0); LYMPHOCYTES # (AUTO) 0.6 K/uL (2.0-11.5); LYMPHOCYTES % (AUTO) 4.8 % (20.5-51.1); MEAN CORPUSCULAR HEMOGLOBIN 31 pg (27-31); MEAN CORPUSCULAR HGB CONC 33 g/dL (33-37); MEAN CORPUSCULAR VOLUME 92.6 fL (80-94); MONOCYTES # (AUTO) 1.2 K/uL (0.8-1.0); MONOCYTES % (AUTO) 8.7 % (1.7-9.3); NEUTROPHILS # (AUTO) 11.6 K/uL (1.8-7.7); PLATELET COUNT (AUTO) 396 K/uL (140-450); RED BLOOD CELL COUNT(AUTO) 4.55 MIL/uL (4.20-6.10); RED CELL DISTRIBUTION WIDTH 14.6 % (11.6-13.7); WHITE BLOOD COUNT (AUTO) 13.5 K/uL (4.8-10.8)
[2019-04-24 00:53] LABS: NEUTROPHILS % (AUTO) 86.1 % (42.2-75.2)
[2019-04-24 00:55] LABS: ANION GAP 14.7 (8-16); CARBON DIOXIDE 27.7 mmol/L (21-32); CREATININE 1.3 mg/dL (0.7-1.3); POTASSIUM 4.4 mmol/L (3.5-5.1)
[2019-04-24 01:01] LABS: ALBUMIN 3.1 g/dL (3.4-5.0); TOTAL BILIRUBIN 0.2 mg/dL (0.0-1.0)
--- NOTE | 2019-04-24 01:17 | NUR ---
PT in bed, asked for a urinal, provided PT w/ urinal. Current temp is 100.4 oral, tachy in 130's, BP decreased to 98/59. Dr Jang notified
--- NOTE | 2019-04-24 01:17 | NUR ---
Note robyn in EDM - 04/24/19 at 0130 by SHEILA PT in bed, asked for a urinal, provided PT w/ urinal. Current temp is 100.4 oral, tachy in 130's, BP decreased to 98/59
--- NOTE | 2019-04-24 03:02 | NUR ---
PT SLEEPING IN BED, AROUSABLE TO LIGHT STIMULOUS. O2 SAT AT 97% ON 4L O2 VIA NC. LUNG SOUNDS DEMINISHED IN LOWER LOBES.
[2019-04-24] MEDS ORDERED: NACL 0.9% 1,000 ML IV ONE ×2 (03:25→07:50)
--- NOTE | 2019-04-24 03:47 | NUR ---
PT PROVIDED URINE SAMPLE IN URINAL, URINE SAMPLE DIPPED AND WAITING DESIGN ENGINEERING INTERN FROM LAB IN [facility]
[2019-04-24 04:32] LABS: APPEARANCE,URINE CLEAR (CLEAR); BILIRUBIN,URINE NEGATIVE (NEGATIVE); BLOOD, URINE 2+ (NEGATIVE); COLOR,URINE YELLOW (YELLOW); LEUKOCYTE ESTERASE ,URINE NEGATIVE (NEGATIVE); NITRITE, URINE NEGATIVE (NEGATIVE); UGLUCOSE NEGATIVE (NEGATIVE)
[2019-04-24 04:45] LABS: RBC,URINE 11-20 (MOD) /HPF (0-5); WBC,URINE 0-5 /HPF (0-5)
[2019-04-24] MEDS ORDERED: ALBUTEROL 0.083% 2.5 MG/3 ML NEBU INH ONE (05:10)
[2019-04-24] MEDS ORDERED: AZITHROMYCIN 500 MG in DEXTROSE 5% 250 ML IV ONE (05:10)
[2019-04-24] MEDS ORDERED: AZITHROMYCIN 500 MG INJ VIAL IV ONE (05:13)
[2019-04-24] MEDS ORDERED: cefTRIAXone 1,000 MG VIAL ONE (05:14)
--- NOTE | 2019-04-24 05:34 | NUR ---
RT AT BEDSIDE AT THIS TIME
--- NOTE | 2019-04-24 06:13 | NUR ---
TRANSPORT ARRANGED TO MOLD CUTTING MACHINE OPERATOR PT BETWEEN 12:30 AND 1:30 TO TAKE PT BACK TO [facility].
--- NOTE | 2019-04-24 07:30 | NUR ---
PT SITTING UP IN BED AAO, C/O WET COUGH. ST W/O ECT NOTED.
[2019-04-24] MEDS ORDERED: OSELTAMIVIR PHOSPHATE 75 MG CAP PO ONE (07:50)
--- NOTE | 2019-04-24 08:30 | NUR ---
Pt resting in bed with eyes closed, easily arrousable. Vital Signs Stable. Pt currently on 4L of O2. Will continue to monitor.
[2019-04-24] MEDS ORDERED: guaiFENesin DM 200/20 MG-10 ML 10 ML UDC PO PRN (09:45)
[2019-04-24] MEDS ORDERED: METOCLOPRAMIDE 10 MG TAB PO PRN (09:45)
[2019-04-24] MEDS ORDERED: NON-FORMULARY ITEM ([Vancomycin Per Pharmacy] 1 EA) MC PRN (09:45)
[2019-04-24] MEDS ORDERED: ALBUTEROL 0.083% 2.5 MG/3 ML NEBU INH PRN (09:50)
[2019-04-24] MEDS ORDERED: LORazepam 2 MG/ML VIAL IVP PRN (09:50)
[2019-04-24] MEDS ORDERED: ONDANSETRON 4 MG/2 ML VIAL IVP PRN (09:50)
[2019-04-24] MEDS ORDERED: DEXTROSE 50% 50 ML SYR IVP PRN (10:00)
--- NOTE | 2019-04-24 10:02 | NUR ---
Judy carlson in [facility] - 04/24/19 at 1003 by WALLY POSITIVE FOR INFLUENZA A & B
--- NOTE | 2019-04-24 10:03 | NUR ---
POSITIVE INFLUENZA A, NEGATIVE INFLUENZA B
[2019-04-24 11:05] VITALS: BP 99/58
--- NOTE | 2019-04-24 11:05 | NUR ---
PATIENT ARRIVED FROM ER VIA GURNEY, TRANSFERRED TO [facility] BED SAFELY. NO DISTRESS NOTED. DENIES ANY PAIN AT THIS TIME. AAOX4, CALM, COOPERATIVE, SKIN COLOR APRPROPRIATE TO ETHNICITY, WARM TO TOUCH. SKIN INTACT. IV SITE INTACT, PATENT. GTUBE IN PLACE, INTACT, PATENT. ORIENTED PATIENT TO ROOM AND CALL LIGHT. REVIEWED PLAN OF CARE WITH PATIENT. PATIENT VERBALIZED UNDERSTANDING. SAFETY MEASURES IN PLACE, CALL LIGHT WITHIN REACH. WILL CONTINUE TO MONITOR.
--- NOTE | 2019-04-24 11:15 | NUR ---
Patient will be admitted to care of DR HUDSON. Admited to [facility]. Will go to room 116. Belongings list completed. Report to LISBET YEAGER.
[2019-04-24] MEDS: NACL 0.9% 1,000 ML IV SCH ×2 (12:05→21:26)
[2019-04-24] MEDS: LEVOFLOXACIN 500 MG/D5W PREMIX 100 ML IV SCH (12:05)
--- NOTE | 2019-04-24 12:08 | NUR ---
ASSISTED LEATHER SPLITTER IN CLEANING AND REPOSITIONING PATIENT. SCHEDULED MEDICATIONS DUE GIVEN. WILL CONTINUE TO MONITOR.
[2019-04-24] MEDS: BLOOD GLUCOSE MONITORING 1 DEV DEV FS SCH ×3 (12:17→21:15)
[2019-04-24] MEDS: GABAPENTIN 100 MG CAP PO SCH ×2 (14:08→18:10)
--- NOTE | 2019-04-24 14:08 | NUR ---
PATIENT LYING DOWN IN BED SLEEPING, AROUSABLE BY VOICE. NO DISTRESS NOTED. DENIES ANY PAIN. SCHEDULED MEDICATIONS DUE GIVEN. WILL CONTINUE TO MONITOR.
[2019-04-24] MEDS ORDERED: VANCOMYCIN 1,500 MG in DEXTROSE 5% 500 ML IV SCH (15:00)
[2019-04-24] MEDS ORDERED: VANCOMYCIN PER PHARMACY MC PRN (15:20)
[2019-04-24 16:00] VITALS: BP 95/56
--- NOTE | 2019-04-24 16:04 | NUR ---
PATIENT LYING DOWN IN BED SLEEPING, AROUSABLE BY VOICE. NO DISTRESS NOTED. DENIES ANY PAIN. SCHEDULED MEDICATIONS DUE GIVEN. GTUBE FEEDING STARTED. WILL CONTINUE TO MONITOR.
[2019-04-24] MEDS: INSULIN LISPRO SLIDING SCALE 100 UNITS/ML VIAL SUBQ PRN (18:11)
--- NOTE | 2019-04-24 18:21 | NUR ---
PATIENT LYING DOWN IN BED SLEEPING, NO DISTRESS NOTED. CONDITION UNCHANGED. SCHEDULED MEDICATIONS DUE GIVEN. WILL CONTINUE TO MONITOR.
--- NOTE | 2019-04-24 19:20 | NUR ---
GAVE REPORT TO TOBACCO STEMMER NURSE FOR CONTINUITY OF CARE. PATIENT IN STABLE CONDITION.
--- NOTE | 2019-04-24 19:25 | NUR ---
RECEIVED PT FROM TOY FRAUSTO PT IS AAOX4 ON BED REST ON 02 3 LTS VIA NC, ON TELEMETRY SR NOT DISTRESS NOTED AT THIS TIME G TUBE FEEDIG WEL TOLERATED REPOSITIONED INITIAL ASSESSMENT DONE
[2019-04-24 20:00] VITALS: BP 91/51
--- NOTE | 2019-04-24 20:55 | NUR ---
RECEIVED PT ON 2L NC WITH SP02 OF 95% AND CRACKLES BREATH SOUNDS. NO RESPIRATORY DISTRESS NOTED AT THIS TIME. NO INDICATION FOR PRN HHN TX AT THIS TIME . WILL CONTINUE TO MONITOR PT
[2019-04-24] MEDS: CARVEDILOL 3.125 MG TAB PO SCH (21:00)
[2019-04-24] MEDS: OSELTAMIVIR PHOSPHATE 75 MG CAP PO SCH (21:25)
[2019-04-24] MEDS: FAMOTIDINE 20 MG TAB PO SCH (21:25)
--- NOTE | 2019-04-24 22:30 | NUR ---
PT GETTING SLEEP ON TELEMETRY SR VOIDING WELL ON URINAL DR HURLEY CAME TO SEE THE T
[2019-04-25] VITALS: BP 107/56
[2019-04-25] MEDS: HYDRAGUARD CREAM TP SCH ×2 (01:00→12:45)
--- NOTE | 2019-04-25 01:00 | NUR ---
PT SLEEPING WELL NOT DISTRESS NOTED REPOSITIONED Q2H ON TELEMETRY ST
[2019-04-25 04:00] VITALS: BP 99/48
--- NOTE | 2019-04-25 04:00 | NUR ---
SPONGE BATH GIVEN LINEN CHANGED G TUBE FEEDING WELL TOLERATED ON TELE ST
[2019-04-25] MEDS: NACL 0.9% 1,000 ML IV SCH ×3 (05:50→23:51)
--- NOTE | 2019-04-25 07:00 | NUR ---
REPORT GIVEN TODAY SHIFT NURSE FOR CONTINUE OF CARE
--- NOTE | 2019-04-25 07:10 | NUR ---
RECEIVED REPORT FROM MANAGER AVIATION NURSE. PATIENT LYING DOWN IN BED SLEEPING, AROUSABLE BY VOICE. NO DISTRESS NOTED. DENIES ANY PAIN. AAOX3, CALM, COOPERATIVE, SKIN COLOR APPROPRIATE TO ETHNICITY. SKIN INTACT, SCROTAL REDNESS DUE TO IAD, HYDRAGUARD BEING APPLIED. IV SITE INTACT, PATENT, AND INFUSING IVF PER MD ORDERS. GTUBE FEEDING INFUSING IVF PER MD ORDERS. RESPIRATIONS EVEN, UNLABORED, ON O2 3L/MIN VIA NC. REVIEWED PLAN OF CARE WITH PATIENT. PATIENT VERBALIZED UNDERSTANDING. SAFETY MEASURES IN PLACE, CALL LIGHT WITHIN REACH. WILL CONTINUE TO MONITOR .
[2019-04-25 07:23] LABS: BASOPHILS % (AUTO) 0.4 % (0.0-2.0); EOSINOPHILS % (AUTO) 0.1 % (0.0-4.0); HEMATOCRIT 34.9 % (36-52); HEMOGLOBIN 11.4 g/dL (12.0-18.0); LYMPHOCYTES # (AUTO) 0.4 K/uL (2.0-11.5); LYMPHOCYTES % (AUTO) 7.9 % (20.5-51.1); MEAN CORPUSCULAR HEMOGLOBIN 31 pg (27-31); MEAN CORPUSCULAR HGB CONC 33 g/dL (33-37); MEAN CORPUSCULAR VOLUME 94.2 fL (80-94); MONOCYTES # (AUTO) 0.6 K/uL (0.8-1.0); MONOCYTES % (AUTO) 10.7 % (1.7-9.3); NEUTROPHILS # (AUTO) 4.6 K/uL (1.8-7.7); NEUTROPHILS % (AUTO) 80.9 % (42.2-75.2); PLATELET COUNT (AUTO) 290 K/uL (140-450); RED CELL DISTRIBUTION WIDTH 14.3 % (11.6-13.7); WHITE BLOOD COUNT (AUTO) 5.7 K/uL (4.8-10.8)
[2019-04-25 07:29] LABS: ANION GAP 12.4 (8-16); CARBON DIOXIDE 26.3 mmol/L (21-32); POTASSIUM 3.7 mmol/L (3.5-5.1)
[2019-04-25 07:35] LABS: ALBUMIN 2.3 g/dL (3.4-5.0); ANION GAP 12.9 (8-16); CARBON DIOXIDE 25.9 mmol/L (21-32); POTASSIUM 3.8 mmol/L (3.5-5.1)
[2019-04-25] MEDS: BLOOD GLUCOSE MONITORING 1 DEV DEV FS SCH ×4 (07:38→20:47)
[2019-04-25 08:00] VITALS: BP 105/50
[2019-04-25] MEDS: ENOXAPARIN 30 MG/0.3 ML SYR SUBQ SCH (08:46)
[2019-04-25] MEDS: GABAPENTIN 100 MG CAP PO SCH ×3 (08:47→17:21)
[2019-04-25] MEDS: MEMANTINE 10 MG TAB PO SCH (08:47)
[2019-04-25] MEDS: OLANZapine 5 MG TAB PO SCH (08:47)
[2019-04-25] MEDS: OSELTAMIVIR PHOSPHATE 75 MG CAP PO SCH ×2 (08:48→20:49)
[2019-04-25] MEDS: FAMOTIDINE 20 MG TAB PO SCH ×2 (08:48→20:48)
[2019-04-25] MEDS: CARVEDILOL 3.125 MG TAB PO SCH ×2 (08:48→20:50)
[2019-04-25] MEDS: HYDROcodone/APAP 10/325 MG 1 TAB TAB PO PRN ×3 (08:48→20:50)
--- NOTE | 2019-04-25 08:57 | NUR ---
PATIENT LYING DOWN IN BED. NO DISTRESS NOTED. ORAL TEMP 100.0, COOLING MEASURES INITIATED WITH ICE PACK ON FOREHEAD/ARMPITS. SCHEDULED MEDICATIONS DUE GIVEN. PATIENT COMPLAINS OF LOW BACK PAIN, NORCO GIVEN AT THIS TIME. WILL CONTINUE TO MONITOR.
[2019-04-25] MEDS: LEVOFLOXACIN 500 MG/D5W PREMIX 100 ML IV SCH (11:14)
--- NOTE | 2019-04-25 11:18 | NUR ---
PATIENT LYING DOWN IN BED WATCHING TV. NO DISTRESS NOTED. SCHEDULED MEDICATIONS DUE GIVEN. WILL CONTINUE TO MONITOR.
[2019-04-25 12:00] VITALS: BP 94/58
[2019-04-25 12:21] LABS: TOTAL BILIRUBIN 0.2 mg/dL (0.0-1.0)
--- NOTE | 2019-04-25 13:00 | NUR ---
PATIENT LYING DOWN IN BED SLEEPING, AROUSABLE BY VOICE. CONDITION UNCHANGED.
[2019-04-25 16:00] VITALS: BP 102/59
--- NOTE | 2019-04-25 17:20 | NUR ---
PATIENT SITTING IN BED WATCHING TV. NO DISTRESS NOTED. CONDITION UNCHANGED. WILL CONTINUE TO MONITOR.
--- NOTE | 2019-04-25 19:20 | NUR ---
GAVE REPORT TO ESTATE PLANNING DIRECTOR NURSE FOR CONTINUITY OF CARE. PATIENT IN STABLE CONDITION.
--- NOTE | 2019-04-25 19:25 | NUR ---
RECEIVED PT FROM TOY FRAUSTO PT IS AAOX4 ON BED REST ONTELE ST G TUBE FEEDING WELL TOLERATD RPOSITIONED IV ON LEF ARM INFUSING WELL INITIAL ASSESSMENT DONE
[2019-04-25 20:00] VITALS: BP 114/56
[2019-04-25] MEDS ORDERED: CRUSHER, PILL MC ONE (20:42)
--- NOTE | 2019-04-25 22:00 | NUR ---
PT REMAIN HAS NOT PAIN AFTER PAIN MEDIC GIVEN ON TELEMETRY ST
[2019-04-26] VITALS: BP 105/58
[2019-04-26] MEDS: HYDRAGUARD CREAM TP SCH ×2 (01:16→13:43)
--- NOTE | 2019-04-26 04:00 | NUR ---
ON CLOSE MONITORING SPONGE BATH GIVEN LINEN CHANGED ON TELE ST
[2019-04-26] MEDS: BLOOD GLUCOSE MONITORING 1 DEV DEV FS SCH ×4 (06:09→21:00)
--- NOTE | 2019-04-26 06:14 | NUR ---
PT WILL BE ENDORSSED TO DAY SHIFT NURSE FOR CONTINUE OF CARE BLOOD SUGA TESR 106, G TUBE FEEDING WELL TOLERATED
--- NOTE | 2019-04-26 07:30 | NUR ---
RECEIVED REPORT FROM ELECTRICAL TESTS SUPERVISOR NURSE. PATIENT LYING DOWN IN BED SLEEPING, AROUSABLE BY VOICE. NO DISTRESS NOTED. DENIES ANY PAIN. AAOX3, CALM, COOPERATIVE, SKIN COLOR APPROPRIATE TO ETHNICITY. SKIN INTACT, SCROTAL REDNESS DUE TO IAD, HYDRAGUARD BEING APPLIED. IV SITE INTACT, PATENT, AND INFUSING IVF PER MD ORDERS. GTUBE FEEDING INFUSING IVF PER MD ORDERS. RESPIRATIONS EVEN, UNLABORED, ON O2 2L/MIN VIA NC. REVIEWED PLAN OF CARE WITH PATIENT. PATIENT VERBALIZED UNDERSTANDING. SAFETY MEASURES IN PLACE, CALL LIGHT WITHIN REACH. WILL CONTINUE TO MONITOR .
[2019-04-26 08:00] VITALS: BP 109/51
[2019-04-26] MEDS: ENOXAPARIN 30 MG/0.3 ML SYR SUBQ SCH (08:51)
[2019-04-26] MEDS: CARVEDILOL 3.125 MG TAB PO SCH ×2 (08:52→22:21)
[2019-04-26] MEDS: OLANZapine 5 MG TAB PO SCH (08:53)
[2019-04-26] MEDS: ACETAMINOPHEN 325 MG TAB PO PRN (08:53)
[2019-04-26] MEDS: FAMOTIDINE 20 MG TAB PO SCH ×2 (08:54→22:22)
[2019-04-26] MEDS: OSELTAMIVIR PHOSPHATE 75 MG CAP PO SCH ×2 (08:54→22:22)
[2019-04-26] MEDS: GABAPENTIN 100 MG CAP PO SCH ×3 (08:54→16:30)
[2019-04-26] MEDS: MEMANTINE 10 MG TAB PO SCH (08:54)
--- NOTE | 2019-04-26 09:05 | NUR ---
PATIENT LYING DOWN IN BED, HAS 100.8 FEVER. TYLENOL GIVEN AT THIS TIME AND OTHER SCHEDULED MEDICATIONS DUE GIVEN. WILL CONTINUE TO MONITOR.
--- NOTE | 2019-04-26 10:08 | NUR ---
PATIENT HAS BEEN SCREENED AND CATEGORIZED HIGH NUTRITION RISK. PATIENT WILL BE SEEN WITHIN 1-2 DAYS OF ADMISSION. 04/26/[address]
[2019-04-26] MEDS: LEVOFLOXACIN 500 MG/D5W PREMIX 100 ML IV SCH (11:27)
[2019-04-26 12:00] VITALS: BP 116/58
[2019-04-26] MEDS: NACL 0.9% 1,000 ML IV SCH (12:01)
[2019-04-26] MEDS: INSULIN LISPRO SLIDING SCALE 100 UNITS/ML VIAL SUBQ PRN (13:45)
--- NOTE | 2019-04-26 13:53 | NUR ---
PATIENT LYING DOWN IN BED SLEEPING, AROUSABLE BY VOICE. NO DISTRESS NOTED. SCHEDULED MEDICATIONS DUE GIVEN. WILL CONTINUE TO MONITOR.
[2019-04-26 16:00] VITALS: BP 110/57
--- NOTE | 2019-04-26 16:06 | NUR ---
04/26/19 RD INITIAL ASSESSMENT COMPLETED PLEASE REFER TO NUTRITION ASSESSMENT UNDER CARE ACTIVITY FOR ESTIMATED NUTRITIONAL NEEDS. 1. CONTINUE JEVITY 1.2 @ 68 ML/HR -THIS WILL PROVIDE 1630 ML OF VOLUME, 1958 KCAL AND 90 GM OF PROTEIN WHICH MEETS 100% OF ESTIMATED NEEDS 2. RECOMMEND DECREASING WATER FLUSH TO [address] TO FOLLOW-UP 2-3 DAYS, HIGH RISK ROSA RIOS RD
--- NOTE | 2019-04-26 16:32 | NUR ---
PATIENT LYING DOWN IN BED SLEEPING, AROUSABLE BY VOICE. NO DISTRESS NOTED. DENIES ANY PAIN. SCHEDULED MEDICATIONS DUE GIVEN. WILL CONTINUE TO MONITOR.
--- NOTE | 2019-04-26 19:21 | NUR ---
RECIEVED PT. AAOX4 , NID - O2 SAT WNL , W/ O2 AT 2LPM/NC , IV SITE INTACT AND PATENT , ON G TUBE FEEDING - PATENT W/ 5 CC RESIDUE . ON SAFETY / FALL PRECAUTION PROTOCOL , PLAN OF CARE DISCUSSED AND VERBALIZE UNDERSTANDING . WILL CONT. TO MONITOR.
--- NOTE | 2019-04-26 19:21 | NUR ---
GAVE REPORT TO BUSINESS MGR NURSE FOR CONTINUITY OF CARE. PATIENT IN STABLE CONDITION.
[2019-04-26 20:00] VITALS: BP 110/60
--- NOTE | 2019-04-26 22:00 | NUR ---
MADE ROUNDS . O2 SAT WNL. WILL CONT. TO MONITOR.
[2019-04-26] MEDS: HYDROcodone/APAP 10/325 MG 1 TAB TAB PO PRN (22:22)
[2019-04-27] VITALS: BP 110/60
--- NOTE | 2019-04-27 | NUR ---
MADE ROUNDS . NO S/SXS OF ACUTE DISTRESS NOTED AT THIS TIME . O2 SAT WNL.
[2019-04-27] MEDS: HYDRAGUARD CREAM TP SCH ×2 (01:00→12:35)
--- NOTE | 2019-04-27 01:53 | NUR ---
MADE ROUNDS , SLEEPING - CHEST FALL AND RISE EQUALLY .
[2019-04-27] MEDS: ACETAMINOPHEN 325 MG TAB PO PRN (02:01)
[2019-04-27 04:00] VITALS: BP 111/60
--- NOTE | 2019-04-27 04:00 | NUR ---
MADE ROUNDS . NO S/SX OF ACUTE DISTRESS NOTED AT THIS TIME.
[2019-04-27] MEDS: NACL 0.9% 1,000 ML IV SCH ×2 (04:33→07:50)
--- NOTE | 2019-04-27 06:00 | NUR ---
HJAD BOWEL MOVEMENT - WATERY - WILL CONT. TO MONITOR. 02 SAT WNL.
[2019-04-27] MEDS: BLOOD GLUCOSE MONITORING 1 DEV DEV FS SCH ×2 (06:07→11:44)
[2019-04-27] MEDS: INSULIN LISPRO SLIDING SCALE 100 UNITS/ML VIAL SUBQ PRN (06:12)
--- NOTE | 2019-04-27 07:15 | NUR ---
RECEIVED REPORT FROM NIGHT NURSE. PATIENT IS IN BED ASLEEP, EASILY AROUSABLE. RESPIRATION EVEN AND UNLABORED. IV INTACT AND PATENT TO LEFT FOREARM WITH NS INFUSING @ 100ML/HR. GT INTACT AND PATENT WITH FEEDING JEVITY 1.2. BED IN LOW POSITION. SAFETY MEASURES IN PLACE. CALL LIGHT WITHIN REACH. PLANS OF CARE DISCUSSED. Addendum: 04/27/19 at 0740 by Rickey Barriga RN PT WITH O2 ON @ 2L VIA NC.
[2019-04-27 08:00] VITALS: BP 132/70
[2019-04-27] MEDS: OSELTAMIVIR PHOSPHATE 75 MG CAP PO SCH (08:59)
[2019-04-27] MEDS: OLANZapine 5 MG TAB PO SCH (08:59)
[2019-04-27] MEDS: FAMOTIDINE 20 MG TAB PO SCH (09:00)
[2019-04-27] MEDS: GABAPENTIN 100 MG CAP PO SCH ×2 (09:00→12:35)
[2019-04-27] MEDS: MEMANTINE 10 MG TAB PO SCH (09:00)
[2019-04-27] MEDS: CARVEDILOL 3.125 MG TAB PO SCH (09:01)
[2019-04-27] MEDS: ENOXAPARIN 30 MG/0.3 ML SYR SUBQ SCH (09:04)
[2019-04-27] MEDS: HYDROcodone/APAP 10/325 MG 1 TAB TAB PO PRN ×2 (09:12→14:18)
--- NOTE | 2019-04-27 09:15 | NUR ---
PATIENT IS AWAKE, ALERT AND VERBALLY RESPONSIVE. PATIENT AM MEDICATIONS GIVEN ORDERED VIA GT. NO RESIDUAL NOTED. PATIENT ON DROPLET ISOLATION. O2 ON @ 2L VIA NC. NO S/S OF DISTRESS NOTED. IV INTACT AND PATENT. CALL LIGHT WITHIN REACH.
[2019-04-27] MEDS: LEVOFLOXACIN 500 MG/D5W PREMIX 100 ML IV SCH (11:40)
--- NOTE | 2019-04-27 11:44 | NUR ---
BLOOD SUGAR 128, NO COVERAGE GIVEN. PATIENT IS IN BED, ASLEEP, EASILY AROUSABLE BY NAME OR TOUCH. NO S/S OF DISTRESS NOTED. NO RESIDUAL NOTED. PATIENT ON DROPLET ISOLATION. O2 ON @ 2L VIA NC. NO S/S OF DISTRESS NOTED. IV INTACT AND PATENT. CALL LIGHT WITHIN REACH.
[2019-04-27 12:00] VITALS: BP 101/52
--- NOTE | 2019-04-27 13:46 | NUR ---
DC PLANNING: PATIENT HAS A DC ORDER TO GO BACK TO [facility] CALLED [facility] SPOKE WITH SELENA ,ACCEPTED PATIENT AND CAN GO TO ROOM 19C UNDER DR DAMEON Soto # TO GIVE REPORT [phone] ,ARR[place] TRANSP[place] [facility] [phone] SPOKE WITH ARTURO ESCOBAR UP TIME AFTER 5PM NOTIFIED LUCINA FRAUSTO
--- NOTE | 2019-04-27 14:20 | NUR ---
PATIENT C/O PAIN NORCO GIVEN ORDERED FOR MODERATE PAIN. PATIENT AWAKE, ALERT AND VERBALLY RESPONSIVE. PATIENT IS FOR DISCHARGE TODAY [place] [facility]. WILL CONTINUE TO MONITOR. NO S/S OF DISTRESS NOTED.
[2019-04-27] MEDS ORDERED: TAM75 PO (15:45)
[2019-04-27 16:00] VITALS: BP 117/61
--- NOTE | 2019-04-27 16:08 | NUR ---
REPORT GIVEN TO WINSOME RN NURSE FROM [facility]. PATIENT IS TRANSFERRING SUGAR COATING HAND 1700.
--- NOTE | 2019-04-27 17:40 | NUR ---
PT DISCHARGED TO [facility] PICKED UP BY [facility] WITH 2 AIR CONDITIONING SPECIALIST VIA GURNEY. BG 123. PATIENT IN STABLE CONDITION. IV REMOVED, CANNULA INTACT. BLEEDING CONTROLLED. ALL BELONGINGS AND ALL DISCHARGE INSTRUCTIONS SIGNED AND SENT WITH PATIENT.
== END 2019-04-27 17:40 | DRG 139 ==
LOC: MED 22:22 → MTU 04-24 09:55
PROVIDERS: ADMIT Internal Medicine Pulmonary Disease; ATTEND Internal Medicine Pulmonary Disease
DX: J10.00 Influenza due to other identified influenza virus with unspecified type of pneumonia (principal); R65.10 Systemic inflammatory response syndrome (SIRS) of non-infectious origin without acute organ dysfunction; E11.40 Type 2 diabetes mellitus with diabetic neuropathy, unspecified; R13.10 Dysphagia, unspecified; J44.9 Chronic obstructive pulmonary disease, unspecified; F03.90 Unspecified dementia, unspecified severity, without behavioral disturbance, psychotic disturbance, mood disturbance, and anxiety; I10 Essential (primary) hypertension; K21.9 Gastro-esophageal reflux disease without esophagitis; F31.9 Bipolar disorder, unspecified; Z88.2 Allergy status to sulfonamides; Z88.8 Allergy status to other drugs, medicaments and biological substances; Z79.899 Other long term (current) drug therapy; Z85.46 Personal history of malignant neoplasm of prostate; Z88.5 Allergy status to narcotic agent; Z92.3 Personal history of irradiation
CPT/HCPCS: 36415; 71045; 80048; 80053; 81001; 82948; 83605; 84484; 85025; 87040; 87081; 87804; 93005; 94640; 96365; 96367; 99285; J0456; J0696; J1650; J1815; J1956; J2060; J3370; J7030; J7060; J7613; Q0092

== ENCOUNTER 2019-05-27 23:18 | Observation (INO) | payer OTHER, MEDICARE ==
[~2019-05-27] VITALS: Ht 177.8 cm; Wt 74.8 kg
[2019-05-27 23:18] VITALS: BP 108/84
[~2019-05-27 23:18] MED LIST changes: +TAM75 PO; -Vancomycin Per Pharmacy MC
--- NOTE | 2019-05-27 23:20 | NUR ---
PT DIXON BLS. TAKEN TO BED 10
[2019-05-27] MEDS ORDERED: NACL 0.9% 1,000 ML IV SCH (23:24)
[2019-05-27] MEDS ORDERED: cefTRIAXone 1,000 MG in DEXT 5% MINI-BAG PLUS 50 ML IV ONE (23:25)
--- NOTE | 2019-05-27 23:31 | NUR ---
EKG PERFORMED AT BEDSIDE
[2019-05-27] MEDS ORDERED: cefTRIAXone 1,000 MG VIAL ONE (23:50)
--- NOTE | 2019-05-28 00:04 | NUR ---
68 YO MALE BIBA FROM SNF FOR LETHRAGY AND TACHYCARDIA. PT STATES THAT HE FEELS "NORMAL." PT DOES NOT HAVE ANY PAIN. PT IS ON RX MEDS AND HAS EXTENSIVE MED HX.
--- NOTE | 2019-05-28 00:06 | NUR ---
PT REFUSED A URINARY CATH
[2019-05-28 00:07] LABS: BASOPHILS # (AUTO) 0.1 K/uL (0.00-0.22); BASOPHILS % (AUTO) 0.7 % (0.0-2.0); EOSINOPHILS # (AUTO) 0.2 K/uL (0-0.4); EOSINOPHILS % (AUTO) 2.2 % (0.0-4.0); HEMATOCRIT 39.7 % (36-52); HEMOGLOBIN 13.7 g/dL (12.0-18.0); LYMPHOCYTES # (AUTO) 1.2 K/uL (2.0-11.5); MEAN CORPUSCULAR HEMOGLOBIN 31 pg (27-31); MEAN CORPUSCULAR HGB CONC 34 g/dL (33-37); MEAN CORPUSCULAR VOLUME 89.3 fL (80-94); MONOCYTES # (AUTO) 1.5 K/uL (0.8-1.0); NEUTROPHILS % (AUTO) 63.7 % (42.2-75.2); PLATELET COUNT (AUTO) 304 K/uL (140-450); RED BLOOD CELL COUNT(AUTO) 4.45 MIL/uL (4.20-6.10); RED CELL DISTRIBUTION WIDTH 14.6 % (11.6-13.7); WHITE BLOOD COUNT (AUTO) 7.9 K/uL (4.8-10.8)
[2019-05-28 00:22] LABS: ANION GAP 10.1 (8-16); POTASSIUM 4.1 mmol/L (3.5-5.1); TOTAL BILIRUBIN 0.2 mg/dL (0.0-1.0)
[2019-05-28 00:24] LABS: MONOCYTES % (AUTO) 18.4 % (1.7-9.3)
[2019-05-28 00:25] LABS: PROTHROMBIN TIME 10.5 secs (10.8-13.4)
[2019-05-28] MEDS ORDERED: LORazepam 2 MG/ML VIAL IVP PRN (01:05)
[2019-05-28] MEDS ORDERED: ZOLPIDEM 5 MG TAB PO PRN (01:05)
[2019-05-28] MEDS ORDERED: guaiFENesin DM 200/20 MG-10 ML 10 ML UDC PO PRN (01:05)
[2019-05-28] MEDS ORDERED: DEXTROSE 50% 50 ML SYR IVP PRN (01:05)
[2019-05-28] MEDS ORDERED: ALBUTEROL 0.083% 2.5 MG/3 ML NEBU INH PRN (01:05)
[2019-05-28] MEDS ORDERED: INSULIN LISPRO SLIDING SCALE 100 UNITS/ML VIAL SUBQ PRN (01:05)
[2019-05-28] MEDS ORDERED: ONDANSETRON 4 MG/2 ML VIAL IVP PRN (01:05)
--- NOTE | 2019-05-28 01:50 | NUR ---
RECEIVED FROM ED AAO X 4, NON AMBULATORY DUE TO WEAKNESS, WITH INF ON THE RIGHT HAND G 22, NORMAL SALINE BOLUS DONE FROM THE ED,POC REVIEWED ORIENTED TO UNIT. PLACED ON LOW BED; CALL LIGHT WITHIN REACH. WILL MONITOR
--- NOTE | 2019-05-28 01:50 | NUR ---
PT MRSA SWAB DONE; CHECKED ON SKIN OF PATIENT. SKIN INTACT. HX AND PHYSICAL DONE. PLACED ON FALL RISK . FALL RISK PRECAUTION IN PLACE
--- NOTE | 2019-05-28 01:54 | NUR ---
Patient will be admitted to care of DR MCDUFFIE. Admited to MED SURG. Will go to room 125A. Belongings list completed. Report to LISBET SAMSON.
--- NOTE | 2019-05-28 02:27 | NUR ---
SEMAJ JAMIL, CALLING FOR DR. GRAHAM MERCHANDISE PRESENTATION MANAGER FOR DR. MCDUFFIE
[2019-05-28] MEDS ORDERED: CRUSHER, PILL MC ONE (02:48)
[2019-05-28] MEDS: HYDROcodone/APAP 5/325 MG 1 TAB TAB PO PRN ×2 (02:59→10:24)
--- NOTE | 2019-05-28 03:00 | NUR ---
DR. GRAHAM ORDERED CHANGE OF DIET TO NPO AND JEVITY 1.2 , INCREASE BY 10 ML EVERY 2 HOURS TO REACH THE GOAL 30 ML/HR; WATER FLUSH 50 Q 4 HRS, HOLD TF GREATER THAN 100 ML RESIDUAL; RESUME FEEDING IF RESIDUAL IS LESS THAN 100. CHECK RESIDUAL EVERY HR. .......DR. YOUNG DID NOT ORDERED ANY IVF. HE SAID TO SALINE LOCK.
[2019-05-28 04:00] VITALS: BP 116/68
[2019-05-28] MEDS: BLOOD GLUCOSE MONITORING 1 DEV DEV FS SCH ×2 (06:59→12:29)
--- NOTE | 2019-05-28 07:23 | NUR ---
PT STABLE CONDITION , WILL ENDORSE TO NEXT SHIFT
--- NOTE | 2019-05-28 07:24 | NUR ---
RECEIVED REPORT FROM VACUUM FORMING MACHINE OPERATOR NURSE MAIL FOR CONTINUITY OF CARE. PT IN STABLE CONDITION. RESPIRATIONS EVEN AND UNLABORED, ROOM AIR. IV INTACT AND PATENT. SAFETY MEASURES IN PLACE. BED IN LOW POSITION. BED ALARM ON. CALL LIGHT AT BEDSIDE. WILL CONTINUE TO MONITOR.
[2019-05-28 08:00] VITALS: BP 103/60
--- NOTE | 2019-05-28 08:08 | NUR ---
PATIENT HAS BEEN SCREENED AND CATEGORIZED HIGH NUTRITION RISK. PATIENT WILL BE SEEN WITHIN 1-2 DAYS OF ADMISSION. 05/28/19-05/29/[address]
[2019-05-28] MEDS ORDERED: MEMANTINE 10 MG TAB PO SCH (09:00)
[2019-05-28] MEDS ORDERED: OLANZapine 5 MG TAB PO SCH (09:00)
[2019-05-28] MEDS ORDERED: FAMOTIDINE 20 MG TAB PO SCH (09:00)
[2019-05-28] MEDS ORDERED: CARVEDILOL 3.125 MG TAB PO SCH (09:00)
[2019-05-28] MEDS ORDERED: LEVO500T98 PO (09:20)
--- NOTE | 2019-05-28 09:54 | NUR ---
CLEANED PT AND CHANGED LINEN AT THIS TIME. PT TOLERATED WELL. BED IN LOW POSITION. BED ALARM ON. CALL LIGHT AT BEDSIDE. WILL CONTINUE TO MONITOR.
[2019-05-28] MEDS: GABAPENTIN 100 MG CAP PO SCH ×2 (10:24→14:08)
--- NOTE | 2019-05-28 10:24 | NUR ---
GAVE PRN PAIN MEDICATION PER PT REQUEST. BED IN LOW POSITION. BED ALARM ON. CALL LIGHT AT BEDSIDE. WILL CONTINUE TO MONITOR.
--- NOTE | 2019-05-28 12:45 | NUR ---
PT SLEEPING AT THIS TIME. RESPIRATIONS EVEN AND UNLABORED. BED IN LOW POSITION. BED ALARM ON. CALL LIGHT AT BEDSIDE. WILL CONTINUE TO MONITOR.
--- NOTE | 2019-05-28 14:20 | NUR ---
CHANGE PT TO PREPARE FOR TRANSPORTATION TO [facility]. PT TOLERATED WELL. RESPIRATIONS EVEN AND UNLABORED. BED IN LOW POSITION. BED ALARM ON. CALL LIGHT AT BEDSIDE. WILL CONTINUE TO MONITOR.
--- NOTE | 2019-05-28 15:30 | NUR ---
GAVE REPORT TO WINSOME STAFF NURSE AT [facility]. ALL QUESTIONS ANSWERED AT THIS TIME.
--- NOTE | 2019-05-28 16:00 | NUR ---
GAVE DISCHARGE INSTRUCTIONS TO PT AND TRANSPORT TEAM. PT AND TRANSPORT TEAM VERBALIZED UNDERSTANDING OF INSTRUCTIONS. IV REMOVED, LUMEN INTACT. ID BAND REMOVED. G-TUBE FEEDING DISCONNECTED. PT PLACED ON GURNEY IN STABLE CONDITION.
== END 2019-05-28 16:00 ==
LOC: MED 23:18 → MMU 05-28 01:10
PROVIDERS: ADMIT Hospitalist; ATTEND Hospitalist
DX: J69.0 Pneumonitis due to inhalation of food and vomit (principal); J96.01 Acute respiratory failure with hypoxia; E11.9 Type 2 diabetes mellitus without complications; F02.80 Dementia in other diseases classified elsewhere, unspecified severity, without behavioral disturbance, psychotic disturbance, mood disturbance, and anxiety; I10 Essential (primary) hypertension; E78.5 Hyperlipidemia, unspecified; K21.9 Gastro-esophageal reflux disease without esophagitis; J44.9 Chronic obstructive pulmonary disease, unspecified; Z88.2 Allergy status to sulfonamides; Z88.5 Allergy status to narcotic agent; Z79.899 Other long term (current) drug therapy; Z79.4 Long term (current) use of insulin
CPT/HCPCS: 36415; 71045; 80053; 82948; 83605; 83880; 84484; 85025; 85610; 85730; 87040; 87081; 93005; 96365; 99285; G0378; J0696; Q0092

== ENCOUNTER 2022-02-18 10:25 | Inpatient (IN) | payer OTHER, MEDICARE ==
[~2022-02-18] VITALS: Ht 180.3 cm; Wt 65.8 kg
[~2022-02-18 10:25] MED LIST changes: +LEVO-481 PO
[2022-02-18 10:29] VITALS: BP 142/64
--- NOTE | 2022-02-18 10:33 | NUR ---
71/[place] [facility] [place] GTUBE DISLODG[place] THAT OCCURED TODAY. PER STAFF AND PATIENT, LAST KNOWN DISLODGEMENT WAS 1 HR AGO. [facility] [place] REPORTS ATTEMPTED TO PLACE [place] AT THE SITE BUT UNABLE TO ADVANCE. GTUBE SITE NOTED TO LLQ. AAO4, NO ACUTE DISTRESS, ON ROOM AIR, DENIES ANY PAIN OR DISCOMFORT AT THIS TIME. PMH: COPD, HTN, DEMENTIA
--- NOTE | 2022-02-18 11:06 | NUR ---
CALLED [facility], SPOKE WITH NURSE TAKING CARE OF PT. REPORTS 20F [address] TUBE[address] DR YANEZ AWARE.
[2022-02-18] MEDS ORDERED: MULT-1328 GT (11:41)
[2022-02-18] MEDS ORDERED: CARV3.12 PO (11:41)
[2022-02-18] MEDS ORDERED: GABA100C GT (11:41)
[2022-02-18] MEDS ORDERED: A/C/1TAB3 GT (11:41)
[2022-02-18] MEDS ORDERED: [UNRECOGNIZED DRUG - CODE] GT (11:41)
[2022-02-18] MEDS ORDERED: LACT500C2 GT (11:41)
[2022-02-18] MEDS ORDERED: ZINC220T3 GT (11:41)
[2022-02-18] MEDS ORDERED: FAMO-92 GT (11:41)
[2022-02-18] MEDS ORDERED: CHOL100013 GT (11:41)
[2022-02-18] MEDS ORDERED: DOCU-299 GT (11:41)
[2022-02-18] MEDS ORDERED: OLAN2.5T1 GT (11:41)
[2022-02-18] MEDS ORDERED: MEMA5TAB GT (11:41)
--- NOTE | 2022-02-18 11:51 | NUR ---
COVID SWAB COLLECTED AND SENT TO LAB
--- NOTE | 2022-02-18 11:58 | NUR ---
BLOOD DRAWN BY EQUITY STRUCTURER
[2022-02-18] MEDS ORDERED: NACL 0.9% 1,000 ML IV SCH (12:00)
[2022-02-18 12:16] LABS: BASOPHILS % (AUTO) 0.3 % (0.0-2.0); EOSINOPHILS % (AUTO) 0.4 % (0.0-4.0); HEMATOCRIT 42.1 % (36-52); HEMOGLOBIN 14.2 g/dL (12.0-18.0); LYMPHOCYTES # (AUTO) 1.3 K/uL (2.0-11.5); LYMPHOCYTES % (AUTO) 15.2 % (20.5-51.1); MEAN CORPUSCULAR HEMOGLOBIN 32 pg (27-31); MEAN CORPUSCULAR HGB CONC 34 g/dL (33-37); MEAN CORPUSCULAR VOLUME 93.3 fL (80-94); MONOCYTES # (AUTO) 0.8 K/uL (0.8-1.0); MONOCYTES % (AUTO) 8.9 % (1.7-9.3); NEUTROPHILS # (AUTO) 6.6 K/uL (1.8-7.7); NEUTROPHILS % (AUTO) 75.2 % (42.2-75.2); PLATELET COUNT (AUTO) 321 K/uL (140-450); RED BLOOD CELL COUNT(AUTO) 4.51 MIL/uL (4.20-6.10); RED CELL DISTRIBUTION WIDTH 13.9 % (11.6-13.7); WHITE BLOOD COUNT (AUTO) 8.8 K/uL (4.8-10.8)
[2022-02-18 12:24] LABS: ANION GAP 12.5 (8-16); ASPARTATE AMINOTRANSFERASE 20 U/L (15-37); CARBON DIOXIDE 31.5 mmol/L (21-32); CHLORIDE 101 mmol/L (98-107); CREATININE 0.9 mg/dL (0.6-1.3); GLUCOSE 102 mg/dL (74-106); SODIUM SERUM 141 mmol/L (136-145); TOTAL BILIRUBIN 0.2 mg/dL (0.0-1.0); UREA NITROGEN, BLOOD 24 mg/dL (7-18)
--- NOTE | 2022-02-18 13:20 | NUR ---
Patient will be admitted to care of DR BARBOSA. Admited to [facility]. Will go to [id number]. Belongings list completed. Report to DEACON FRAUSTO.
[2022-02-18 13:45] VITALS: BP 108/70
--- NOTE | 2022-02-18 13:45 | NUR ---
ADMITTED FROM ER VIA GURNEY. AWAKE, ALERT, AND ORIENTED X2. RE-ORIENTED TO EVENTS AND SURROUNDINGS. NO SOB, NOTED. NO REDNESS AROUND GT STOMA NOTED. SALINE LOCK RIGHT WRIST #20 INTACT AND PATENT. FALL PRECAUTION APPLIED. CALL LIGHT WITHIN REACH.
[2022-02-18] MEDS: DEXT 5% /NACL 0.9% 1,000 ML IV SCH (14:27)
--- NOTE | 2022-02-18 15:27 | NUR ---
FOLLOWED UP CONSULT WITH DR VALENCIA. AWAITING FOR RESPONSE.
[2022-02-18 16:00] VITALS: BP 108/67
--- NOTE | 2022-02-18 16:30 | NUR ---
PT CHECKED AND SEEN BY DR BARBOSA.
[2022-02-18] MEDS ORDERED: INSULIN LISPRO SLIDING SCALE 100 UNITS/ML VIAL SUBQ PRN (17:50)
[2022-02-18] MEDS ORDERED: DEXTROSE 50% 50 ML SYR IVP PRN (17:50)
--- NOTE | 2022-02-18 18:19 | NUR ---
DID ROUNDS. PT IN BED, RESTING, AWAKE. NO DISTRESS NOTED. ASSISTED TELEGRAPH EDITOR TO CHANGE DIAPER. PT REMAINED CLEAN AND DRY.
[2022-02-18] MEDS: METOPROLOL 5 MG/5 ML VIAL IV SCH ×2 (18:24→23:38)
--- NOTE | 2022-02-18 19:15 | NUR ---
ENDORSED PT TO OPERATIONS RESEARCH GROUP MANAGER NURSE FOR CONTINUITY OF CARE. ALL NEEDS MET THROUGHOUT SHIFT. PT IS STABLE.
--- NOTE | 2022-02-18 19:16 | NUR ---
[facility] PATIENT WAS STABLE DURING THE CHANGE OF SHIFT. PATIENT WAS ABLE TELL NURSING WHY HE IS IN THE HOSPITAL. PATIENT WAS ALERT AND ORIENTED X 3 WITH MOMENTS OF CONFUSION. PATIENT STATED HE WAS IN PAIN BUT COULD NOT TELL THE NURSE WHERE. PATIENT UNDERSTOOD PAIN MEDICATION IS TO BE GIVE WITHOUT PAIN BECAUSE IT IS ORDERED. NURSING GAVE PATIENT EDUCATION ON MEDICATION PAIN MANAGEMENT. PATIENT UNDERSTOOD AND WAS ABLE TO REPEAT THE INFORMATION BACK. PATIENT IS ON ROOM AIR BREATHING WITHOUT INCIDENT. SIDE RAILS X 2 CALL LIGHT WITHIN REACH FOR ASSISTANCE. [email or web address]
--- NOTE | 2022-02-18 19:30 | NUR ---
DISCUSSED AND REVIEWED PATIENT PALN OF CARE WITH JESSE ROY.
[2022-02-18 20:00] VITALS: BP 104/67
[2022-02-18] MEDS: BLOOD GLUCOSE MONITORING 1 DEV DEV FS SCH (21:38)
[2022-02-18] MEDS: HYDROmorphone 1 MG/ML AMP IVP PRN (22:49)
--- NOTE | 2022-02-19 01:02 | NUR ---
CLARIFICATION ORDER FOR THE METOPROLOL. THE ORDER WAS CHANGED PER DR HERRON PRN. [email or web address]
[2022-02-19] MEDS ORDERED: METOPROLOL 5 MG/5 ML VIAL IV PRN (01:05)
[2022-02-19] MEDS: DEXT 5% /NACL 0.9% 1,000 ML IV SCH ×2 (03:00→16:20)
[2022-02-19] MEDS: HYDROmorphone 1 MG/ML AMP IVP PRN ×2 (03:22→20:27)
[2022-02-19 04:00] VITALS: BP 117/68
--- NOTE | 2022-02-19 04:35 | NUR ---
PATIENT WAS CLEAND AND KEPT DRY. NOTED URINE AND SMALL FIRM BOWEL MOVEMENT. [email or web address]
[2022-02-19] MEDS: BLOOD GLUCOSE MONITORING 1 DEV DEV FS SCH ×4 (06:52→20:36)
[2022-02-19 07:14] LABS: BASOPHILS % (AUTO) 0.3 % (0.0-2.0); EOSINOPHILS % (AUTO) 0.2 % (0.0-4.0); HEMATOCRIT 42.6 % (36-52); HEMOGLOBIN 14.5 g/dL (12.0-18.0); LYMPHOCYTES # (AUTO) 1.3 K/uL (2.0-11.5); LYMPHOCYTES % (AUTO) 16.1 % (20.5-51.1); MEAN CORPUSCULAR HEMOGLOBIN 32 pg (27-31); MEAN CORPUSCULAR HGB CONC 34 g/dL (33-37); MEAN CORPUSCULAR VOLUME 94.4 fL (80-94); MONOCYTES # (AUTO) 0.8 K/uL (0.8-1.0); MONOCYTES % (AUTO) 10.2 % (1.7-9.3); NEUTROPHILS # (AUTO) 5.9 K/uL (1.8-7.7); NEUTROPHILS % (AUTO) 73.2 % (42.2-75.2); PLATELET COUNT (AUTO) 313 K/uL (140-450); RED BLOOD CELL COUNT(AUTO) 4.52 MIL/uL (4.20-6.10); RED CELL DISTRIBUTION WIDTH 14.2 % (11.6-13.7); WHITE BLOOD COUNT (AUTO) 8.1 K/uL (4.8-10.8)
--- NOTE | 2022-02-19 07:20 | NUR ---
RECEIVED PT FROM OWNER SPA DIRECTOR NURSE FOR CONTINUITY OF CARE. PT AWAKE IN BED. RESPIRATIONS EVEN AND UNLABORED. NO DISTRESS NOTED. NO COMPLAINTS OF PAIN. CALL LIGHT WITHIN REACH. SAFETY PRECAUTIONS IN PLACE.
[2022-02-19 07:22] LABS: ANION GAP 14.9 (8-16); CARBON DIOXIDE 28.2 mmol/L (21-32); CHLORIDE 105 mmol/L (98-107); CREATININE 0.8 mg/dL (0.6-1.3); GLUCOSE 102 mg/dL (74-106); POTASSIUM 4.1 mmol/L (3.5-5.1); SODIUM SERUM 144 mmol/L (136-145); UREA NITROGEN, BLOOD 23 mg/dL (7-18)
[2022-02-19 08:00] VITALS: BP 117/75
--- NOTE | 2022-02-19 08:00 | NUR ---
REVIEWED AND DISCUSSED PLAN OF CARE WITH JESSE MARIA.
--- NOTE | 2022-02-19 09:28 | NUR ---
PATIENT HAS BEEN SCREENED AND CATEGORIZED HIGH NUTRITION RISK. PATIENT WILL BE SEEN WITHIN 1-2 DAYS OF ADMISSION. 02/19/2211/23/22 REFERRAL RECEIVED FOR DYSPHAGIA AND TUBE FEEDING FRANK [address] RD
--- NOTE | 2022-02-19 11:37 | NUR ---
BLOOD SUGAR CHECK DONE. NO SLIDING SCALE INSULIN ADMINISTERED FOR BS 117.
--- NOTE | 2022-02-19 12:30 | NUR ---
PT CHECKED AND SEEN BY DR VALENCIA.
--- NOTE | 2022-02-19 13:20 | NUR ---
PT. WITH LOW MALLORIE SCALE AT MODERATE TO HIGH RISK, CONTINUE TO FOLLOW PRESSURE INJURY PREVENTION INTERVENTIONS. -POSITIONING: TURN AND REPOSITION PATIENT Q 2H OR SOONER USE PILLOWS TO KEEP BONY PROMINENCES FROM DIRECT CONTACT WITH SURFACES USE REPOSITIONING WEDGES TO PROVIDE 30-DEGREE ANGLE FOR SIDE LYING POSITIONS OFFLOADING OR FOAM DRESSING TO ALL TUBING TO PREVENT MEDICAL DEVICES RELATED PRESSURE INJURY -RE-EVALUATING AND MANAGING INCONTINENCE MONITOR SKIN CONDITION DURING POSITION CHANGE DO NOT MASSAGE REDNESS, BONY PROMINENCES FREQUENT BARBIE-CARE AND PROVIDE BARRIER CREAMS PRN IF SOILING MOISTURE CONTROL BY OFFER BED HULL/URINAL /ABSORBENT PAD TO WICK AND HOLD MOISTURE KEEP SKIN DRY AND PROTECT FROM FRICTION -MANAGE FRICTION/SHEAR/MOBILITY KEEP HOB AT THE LOWEST LEVEL OF ELEVATION NO MORE THAN 30 DEGREE UNLESS OTHERWISE CONTRAINDICATED USE LIFT SHEET OR TRANSFER DEVICE TO MOVE PATIENT AND PREVENT LATERAL SHEER. PROTECT HEELS, ELBOWS BONY PROMINENCES WITH SKIN BERRIES OR FOAM DRESSING IF EXPOSED TO FRICTION OFFLOAD BILATERAL HEELS BY PLACING PILLOWS UNDER CALVES AT ALL TIMES, UNLESS OTHERWISE CONTRAINDICATED -PRESSURE REDISTRIBUTION SURFACE THERAPY CARLOS ISOFLEX MATTRESS -NUTRITION: PLEASE FOLLOW RD RECOMMENDATIONS AND OFFER NUTRITION SUPPLEMENTS IF ORDERED. PLEASE CONTACT WOUND CARE NURSE FOR ANY QUESTION AND CHANGE OF WOUND CONDITION.
--- NOTE | 2022-02-19 14:48 | NUR ---
DC PLANNING PER NOTES, PT A&O X2-3 WITH SLIGHT CONFUSION, THEREFORE SW OUTREACHED TO [facility] TO GATHER COLLATERAL INFORMATION. SPOKE WITH [facility] SW, SILVIA WHO REPORTS PT IS IN SKILLED NURSING CARE, ADMISSION DATE; AUGUST 09, 2016. SILVIA REPORTS PATIENT IS VERBAL HOWEVER, IS CONFUSED AT BASELINE. PT IS REPORTED TO BE PRIMARILY BED BOUND AND REQUIRES ASSISTANCE WITH ADL'S. SILVIA REPORTS PATIENT HAS DIABETES THAT IS WELL MANAGED BY FACILITY. PT FOLLOWED BY DR XIAO AT [facility]. PTS DAUGHTER IS REPORTED TO BE ACTIVE IN CARE.DC PLAN IS FOR PT TO RETURN TO [facility], ONCE MEDICALLY STABLE. Addendum: 02/19/22 at 1449 by Freddy Tyler Amended: Links added.
[2022-02-19 16:00] VITALS: BP 116/82
--- NOTE | 2022-02-19 16:30 | NUR ---
NO INSULIN COVERAGE FOR BS 111.
--- NOTE | 2022-02-19 17:17 | NUR ---
REPOSITIONED PT. NO DISTRESS NOTED. NO COMPLAINT OF PAIN. WILL CONTINUE TO MONITOR.
--- NOTE | 2022-02-19 19:10 | NUR ---
BEDSIDE ENDORSEMENT TO ORACLE EBS DEVELOPER NURSE FOR CONTINUITY OF CARE. ALL NEEDS MET THROUGHOUT SHIFT. PT IS STABLE.
[2022-02-20] MEDS: HYDROmorphone 1 MG/ML AMP IVP PRN ×4 (02:34→23:10)
[2022-02-20 04:00] VITALS: BP 116/82
[2022-02-20] MEDS: DEXT 5% /NACL 0.9% 1,000 ML IV SCH ×2 (05:35→19:14)
[2022-02-20] MEDS: BLOOD GLUCOSE MONITORING 1 DEV DEV FS SCH ×4 (07:30→22:00)
[2022-02-20 08:30] LABS: CARBON DIOXIDE 29.4 mmol/L (21-32); CHLORIDE 110 mmol/L (98-107); CREATININE 0.9 mg/dL (0.6-1.3); GLUCOSE 136 mg/dL (74-106); POTASSIUM 4.4 mmol/L (3.5-5.1); SODIUM SERUM 149 mmol/L (136-145); UREA NITROGEN, BLOOD 23 mg/dL (7-18)
--- NOTE | 2022-02-20 11:18 | NUR ---
02/20/22 RD INITIAL ASSESSMENT COMPLETED PLEASE REFER TO NUTRITION ASSESSMENT UNDER CARE ACTIVITY FOR ESTIMATED NUTRITIONAL NEEDS. 1. IF PT PASSES SWALLOW EVAL, ADVANCE TO [facility] 60GM DIET WITH TEXTURE MODIFICATION PER ST RECOMMENDATIONS -RECOMMEND ORAL SUPPLEMENTS NUTRITION SUPPORT 2. IF PT FAILS SWALLOW EVAL AND REQUIRES TUBE FEEDING, RECOMMEND GLUCERNA 1.2 @ 60 ML/HR WITH FWF 150ML Q6H -START AT 20ML/HR AND INCREASE BY 20ML Q4H TOLERATED -WILL PROVIDE ~90% ESTIMATED KCAL AND 100% ESTIMATED PROTEIN NEEDS; ADEQUATE 3. RD TO FOLLOW-UP 3-5 DAYS, MODERATE RISK FRANK GRAHAM RD
[2022-02-20 16:00] VITALS: BP 121/73
--- NOTE | 2022-02-20 19:24 | NUR ---
ENDORSEMENT PATIENT TO PM SHIFT NURSE IN STABLE CONDITION. SPEECH THERAPIST IS HERE FOR ST EVALUATION. PIV r. WRIST 22 INFUSING D5ND @75ML/HR
[2022-02-20 20:00] VITALS: BP 137/69
[2022-02-21 04:00] VITALS: BP 104/68
[2022-02-21 06:00] VITALS: BP 110/73
[2022-02-21] MEDS: HYDROmorphone 1 MG/ML AMP IVP PRN ×3 (06:04→20:35)
[2022-02-21] MEDS: BLOOD GLUCOSE MONITORING 1 DEV DEV FS SCH ×4 (06:04→20:51)
[2022-02-21 07:27] LABS: BASOPHILS % (AUTO) 0.1 % (0.0-2.0); HEMATOCRIT 39.2 % (36-52); LYMPHOCYTES % (AUTO) 10.4 % (20.5-51.1); MEAN CORPUSCULAR HEMOGLOBIN 32 pg (27-31); MEAN CORPUSCULAR HGB CONC 33 g/dL (33-37); MEAN CORPUSCULAR VOLUME 95.3 fL (80-94); MONOCYTES # (AUTO) 0.8 K/uL (0.8-1.0); MONOCYTES % (AUTO) 8.6 % (1.7-9.3); NEUTROPHILS # (AUTO) 7.7 K/uL (1.8-7.7); NEUTROPHILS % (AUTO) 80.9 % (42.2-75.2); PLATELET COUNT (AUTO) 314 K/uL (140-450); RED BLOOD CELL COUNT(AUTO) 4.12 MIL/uL (4.20-6.10); RED CELL DISTRIBUTION WIDTH 14.2 % (11.6-13.7); WHITE BLOOD COUNT (AUTO) 9.5 K/uL (4.8-10.8)
[2022-02-21] MEDS: DEXT 5% / NACL 0.45% 1,000 ML IV SCH (07:42)
[2022-02-21 07:49] LABS: ANION GAP 9.9 (8-16); CARBON DIOXIDE 25.6 mmol/L (21-32); CHLORIDE 115 mmol/L (98-107); CREATININE 0.9 mg/dL (0.6-1.3); GLUCOSE 104 mg/dL (74-106); POTASSIUM 3.5 mmol/L (3.5-5.1); SODIUM SERUM 147 mmol/L (136-145); UREA NITROGEN, BLOOD 22 mg/dL (7-18)
[2022-02-21 08:00] VITALS: BP 118/68
--- NOTE | 2022-02-21 08:00 | NUR ---
REVIEWED AND DISCUSSED PT PLAN OF CARE WITH JESSE MACK. PT IN STABLE CONDITION.
--- NOTE | 2022-02-21 08:25 | NUR ---
RECEIVED PT FROM REPAIRER SWITCHGEAR NURSE FOR CONTINUITY OF CARE. PT IN BED AWAKE. RESPIRATIONS EVEN AND UNLABORED ON RA. NO DISTRESS NOTED. IV ON R WRIST 20G. CALL LIGHT WITHIN REACH. ALL SAFETY PRECAUTIONS IN PLACE.
--- NOTE | 2022-02-21 12:13 | NUR ---
BLOOD SUGAR CHECK DONE, BS 100. NO COVERAGE NEEDED.
--- NOTE | 2022-02-21 12:21 | NUR ---
MEDICATED BACK PAIN 9 WITH PRN DILAUDID.
--- NOTE | 2022-02-21 17:34 | NUR ---
BLOOD SUGAR CHECK DONE. BS 105. NO COVERAGE NEEDED.
--- NOTE | 2022-02-21 18:35 | NUR ---
CALLED KERRY CORNEJO PATIENTS DAUGHTER TO INFORM HER OF PT SCHEDULE PROCEDURE TOMORROW, NO ANSWER. LEFT MESSAGE.
--- NOTE | 2022-02-21 19:30 | NUR ---
RECEIVED ENDORSEMENT FROM DAY SHIFT NURSE FOR [id number] OF CARE. PT IS AWAKE, ALERT AND VERBALLY RESPONSIVE TO STIMULI. PT IS FOR GTUBE PLACEMENT TOMORROW AND CURRENTLY IS ON NPO. PT IS NOT ON O2 INHALATION. SKIN DRY AND WARM. IV SALINE LOCK 20G IS INTACT AND PATENT, INFUSING D5 NS 0.45% AT 75ML/HR. PT IS INCONTINENT AND BLOOD SUGAR CHECK ACHS. .
[2022-02-21 20:00] VITALS: BP 118/68
--- NOTE | 2022-02-21 20:35 | NUR ---
PT COMPLAINTS OF BACK ACHE 12/08, PAIN MEDICATION DILAUDID ADMINISTERED ORDER.
--- NOTE | 2022-02-21 20:51 | NUR ---
BLOOD SUGAR CHECKED = 103. NO SLIDING SCALE COVERAGE, NO INSULIN INJECTION NEEDED.
--- NOTE | 2022-02-21 22:10 | NUR ---
DAUGHTER KERRY CALLED AND STATED THAT SHE IS LIVING IN [place] AND SHE WOULD GIVE CONSENT FOR TOMORROW PROCEDURE OVER THE PHONE WITH 2 NURSES SIGN. SHE WOULD APPROVE CONSENT OVER THE PHONE WITH TWO NURSES SIGN AFTER SHE TALK TO THE DOCTOR, BEFORE PROCEDURE PERFORM. DAUGHTER WILL NOT APPROVE TO DO THE CONSENT AT THIS TIME. DAUGHTER STATED, SHE CALLS HOSPITAL TO SAY "HAPPY THANKSGIVING TO DAD".
[2022-02-22] MEDS: DEXT 5% / NACL 0.45% 1,000 ML IV SCH ×2 (02:18→09:25)
[2022-02-22] MEDS: HYDROmorphone 1 MG/ML AMP IVP PRN ×4 (03:19→21:31)
[2022-02-22 04:00] VITALS: BP 118/70
--- NOTE | 2022-02-22 06:45 | NUR ---
PT BLOOD SUGAR = 112, NO SLIDING SCALE COVERAGE. NO INSULIN NEEDED.
[2022-02-22 07:30] LABS: BASOPHILS % (AUTO) 0.3 % (0.0-2.0); EOSINOPHILS % (AUTO) 0.1 % (0.0-4.0); HEMATOCRIT 38.3 % (36-52); HEMOGLOBIN 12.9 g/dL (12.0-18.0); LYMPHOCYTES # (AUTO) 0.6 K/uL (2.0-11.5); LYMPHOCYTES % (AUTO) 8.8 % (20.5-51.1); MEAN CORPUSCULAR HEMOGLOBIN 32 pg (27-31); MEAN CORPUSCULAR HGB CONC 34 g/dL (33-37); MEAN CORPUSCULAR VOLUME 94.1 fL (80-94); MONOCYTES # (AUTO) 0.7 K/uL (0.8-1.0); MONOCYTES % (AUTO) 9.4 % (1.7-9.3); NEUTROPHILS # (AUTO) 5.7 K/uL (1.8-7.7); NEUTROPHILS % (AUTO) 81.4 % (42.2-75.2); PLATELET COUNT (AUTO) 280 K/uL (140-450); RED BLOOD CELL COUNT(AUTO) 4.06 MIL/uL (4.20-6.10); RED CELL DISTRIBUTION WIDTH 14.5 % (11.6-13.7)
[2022-02-22] MEDS: BLOOD GLUCOSE MONITORING 1 DEV DEV FS SCH ×4 (07:30→22:00)
[2022-02-22] MEDS ORDERED: fentaNYL citrate 0.05 MG/ML VIAL ONE (07:54)
[2022-02-22] MEDS ORDERED: diphenhydrAMINE 50 MG/ML VIAL ONE (07:54)
[2022-02-22] MEDS ORDERED: LIDOCAINE 2% 100 MG/5 ML UJET TP ONE (07:55)
[2022-02-22] MEDS ORDERED: MIDAZOLAM 5 MG/5 ML VIAL ONE (07:55)
[2022-02-22 08:19] LABS: CARBON DIOXIDE 25.4 mmol/L (21-32); CHLORIDE 114 mmol/L (98-107); CREATININE 0.8 mg/dL (0.6-1.3); GLUCOSE 109 mg/dL (74-106); POTASSIUM 3.4 mmol/L (3.5-5.1); SODIUM SERUM 150 mmol/L (136-145); UREA NITROGEN, BLOOD 22 mg/dL (7-18)
[2022-02-22] MEDS ORDERED: fentaNYL citrate 0.05 MG/ML VIAL IVP ONE (11:20)
[2022-02-22] MEDS ORDERED: MIDAZOLAM 2 MG/2 ML VIAL IVP ONE (11:20)
[2022-02-22 12:00] VITALS: BP 119/64
--- NOTE | 2022-02-22 19:10 | NUR ---
REPORT GIVEN TO PM NURSE FOR CONTINUITY OF CARE.
[2022-02-22 19:59] VITALS: BP 119/68
--- NOTE | 2022-02-22 20:00 | NUR ---
RECEIVED REPORT AT BED SIDE.PT IS A&OX2.RESP.UNLABORED.IVF INFUSING WELL.NO DISTRESS NOTED.CALL LIGHT IN REACH.WILL CONTINUE MONITORING.
--- NOTE | 2022-02-22 23:00 | NUR ---
ZP=[id number].DID NOT COVER.PT IS NPO
[2022-02-23] MEDS: HYDROmorphone 1 MG/ML AMP IVP PRN ×2 (00:28→03:43)
[2022-02-23 04:00] VITALS: BP 122/65
--- NOTE | 2022-02-23 06:36 | NUR ---
HE DIDN'T SLEEP WELL LAST NIGHT.RECEIVED PAIN MEDS SEVERAL TIMES.IVF INFUSING.WAITING TO TRANSFER TO [facility]..CONDITION STABLE.
[2022-02-23] MEDS: BLOOD GLUCOSE MONITORING 1 DEV DEV FS SCH (06:54)
--- NOTE | 2022-02-23 06:55 | NUR ---
IF=[id number].DIDN'T COVER PT IS NPO.
--- NOTE | 2022-02-23 07:00 | NUR ---
RECEIVED PT FROM HOME DECORATOR NURSE FOR CONTINUITY OF CARE. PT IN BED AWAKE AND ALERT X2 TO NAME AND DATE. RESPIRATIONS EVEN AND UNLABORED ON RA. NOTED IV FLUIDS RUNNING ON 5 CC/HR IV SITE ON L WRIST LEAKING. STOPPED FLUIDS, NEED NEW IV SITE. CALL LIGHT WITHIN REACH. ALL SAFETY PRECAUTIONS IN PLACE.
--- NOTE | 2022-02-23 09:47 | NUR ---
CODE HOMA CALLED 0947 UPON ENTERING THE ROOM, NURSE SAYS PT IS COLD, AND CALL THE DOCTOR TO CALL IT. WE ENTERED ROOM ANYWAYS WITH AMBU BAG AND SET UP. CHARGE NURSE ARRIVED APPROXIMATELY 10 SECONDS AFTER AND INSTRUCTED NURSE TO START CPR, AMBU BAG BREATHS WERE INITIATED. DOCTOR JOCELYN INTUBATED WITH 7.5 ETT AT 24CM @LIP. PT APPROXIMATELY 1004.
--- NOTE | 2022-02-23 10:37 | NUR ---
CALLED [facility] AT AND SPOKE TO ADARSH ABOUT PT. INFORMATION. GOT REFERRAL ID #[id number]. INFORMED MARTINA SOFIA AND REHABILITATION AIDE -QASIM.
== END 2022-02-23 10:04 | DRG 252 ==
LOC: MED 10:25 → OBSVTOIN 11:59 → MMU 11:59 → MTU 12:53
PROVIDERS: ADMIT Internal Medicine; ATTEND Internal Medicine
PROC: 0DJ08ZZ Inspection of Upper Intestinal Tract, Via Natural or Artificial Opening Endoscopic (ICD-10-PCS; principal; 2022-02-22 08:00)
PROC: 0BH17EZ Insertion of Endotracheal Airway into Trachea, Via Natural or Artificial Opening (ICD-10-PCS; 2022-02-23)
PROC: 5A12012 Performance of Cardiac Output, Single, Manual (ICD-10-PCS; 2022-02-23)
DX: K94.23 Gastrostomy malfunction (principal); J90 Pleural effusion, not elsewhere classified; K56.600 Partial intestinal obstruction, unspecified as to cause; E44.0 Moderate protein-calorie malnutrition; J98.11 Atelectasis; K56.7 Ileus, unspecified; F03.90 Unspecified dementia, unspecified severity, without behavioral disturbance, psychotic disturbance, mood disturbance, and anxiety; K22.2 Esophageal obstruction; I46.9 Cardiac arrest, cause unspecified; R13.10 Dysphagia, unspecified; Z20.822 Contact with and (suspected) exposure to COVID-19; J44.9 Chronic obstructive pulmonary disease, unspecified; I10 Essential (primary) hypertension; K21.9 Gastro-esophageal reflux disease without esophagitis; Z88.2 Allergy status to sulfonamides; Z88.5 Allergy status to narcotic agent; Z85.9 Personal history of malignant neoplasm, unspecified; Y92.89 Other specified places as the place of occurrence of the external cause; Z68.20 Body mass index [BMI] 20.0-20.9, adult
CPT/HCPCS: 31500; 36415; 80048; 80053; 82948; 83735; 85025; 87081; 88305; 88312; 88313; 88342; 92526; 92950; 99285; J1170; J1200; J1815; J2250; J3010; J3490